=== PATIENT | female | born 1935 | race Caucasian/White ===

== ENCOUNTER 2016-09-22 13:28 | Inpatient (IN) | payer OTHER ==
[~2016-09-22] VITALS: Ht 160 cm; Wt 62.6 kg
[2016-09-22] MEDS ORDERED: SODIUM CHLORIDE 0.9% 1000ML 1,000 ML IV ONE (14:22)
[2016-09-22] MEDS ORDERED: SODIUM CHLORIDE 0.9% 1000ML 1,000 ML IV STA (14:22)
--- NOTE | 2016-09-22 14:29 | EMERGENCY ROOM VISIT NOTE ---
History Report prepared by Linnette: Digna Malloy Under the Supervision of: Dr. Teja Méndez M.D. First contact with patient: 14:12 Chief Complaint: HYPOTENSION Stated Complaint: HYPOTENSION, BRADYCARDIA, WEAKNESS, ABD. PAIN History of Present Illness The patient is a 80 year old female who presents to the Emergency Room with complaints of persistent weakness that began one week ago. The patient states that she has a history atrial fibrillation, but denies being in it chronically. She states that she is on Coumadin for her atrial fibrillation. The patient states that for the past week she has been feeling so weak that she feels that she will vomit if she stands too long. She notes nausea and lower abdominal pain today. The patient denies any recent fall or trauma or urinary symptoms. Per the patient's daughter, the patient's blood pressure was hypotensive today at a reading of 80/50 mmHg. She states that the patient has had a decrease in her appetite due to her hiatal hernia and GERD. The patient's daughter notes that the patient previously used Mylanta, but denies any relief anymore. The patient reports normal fluid intake, other than last evening and this morning. She notes chronic abdominal pain, but denies any cough, chest pain, shortness of breath, hematochezia, or melena. The patient states that she has had a low grade fever, noting a recent head cold since Friday. The patient's daughter notes that the patient recently had a change in her insulin dosage and reports a blood glucose of 102 mg/dL. She states that the patient has a history of renal disease, TIA, gastroparesis, and hypothyroidism. The patient's daughter notes that the patient recently lost her , but the patient denies any current depression. Source of History: patient, family (daughter) Onset: one week ago Position: other (global) Quality: other (weakness) Timing: other (persistent) Associated Symptoms: + abdominal pain, + nausea, No SOB, No chest pain, No cough Note: Associated Symptoms: hypotensive Review of Systems See HPI for pertinent positives & negatives. A total of 10 systems reviewed and were otherwise negative. Past Medical & Surgical Medical Problems: (1) Atrial fibrillation (2) Diabetes (3) Heart disease (4) Hypertension (5) Intractable abdominal pain (6) Orthostatic hypotension (7) TIA (transient ischemic attack) Surgical Problems: (1) H/O: hysterectomy (2) Hx of appendectomy (3) Hx of cholecystectomy (4) Status post breast reduction Old medical records were reviewed. Nurse's notes were reviewed and I agree with. Family History Diabetes mellitus FH: heart disease FHx: cancer FHx: gallbladder disease Hypertension Kidney disease Kidney stones Social History Smoking Status: Never Smoker Smokeless Tobacco Use: No Alcohol Use: none Marital Status: Housing Status: lives alone Occupation Status: retired Current/Historical Medications Scheduled Aspirin (Aspirin Ec), 81 MG PO DAILY Atorvastatin (Lipitor), 40 MG PO HS Calcium Carbonate-Vitamin D (Caltrate 600+D 600-400 mg-Unit), 1 TAB PO DAILY Cholecalciferol (Vitamin D3), 1,000 INTERUNIT PO DAILY Cyanocobalamin (Vitamin B-12), 1,000 MG SL DAILY Ferrous Sulfate (Kp Ferrous Sulfate), 325 MG PO DAILY Insulin Human NPH (Novolin N), 12 UNITS SQ QAM Insulin Human NPH (Novolin N), 4 UNITS SQ HS Isosorbide Mononitrate Ext Rel (Imdur Ext Rel), 30 MG PO QAM Levothyroxine Sodium (Synthroid), 100 MCG PO DAILY Losartan Potassium (Cozaar), 100 MG PO DAILY Magnesium Oxide (Mag-Ox), 400 MG PO QID Metoprolol Tartrate (Lopressor) (Lopressor), 50 MG PO BID Nitroglycerin (Nitrostat), 0.4 MG SL UD Pantoprazole (Protonix), 40 MG PO BID Potassium Gluconate (Potassium Gluconate), 1,785 MG PO DAILY Sucralfate (Sucralfate), 1 GM PO QID Warfarin Sod (Jantoven), 5 MG PO DAILY Scheduled PRN Hydrocodone/Acetaminophen 5MG/325MG ([place] 5MG/325MG), 1-2 TABLETS PO QID PRN for SEVERE PAIN Lorazepam (Ativan), 0.5 MG PO DAILY PRN for Anxiety Triamcinolone Acet (Triamcinolone Acetonide), 1 APPLN TOP BID PRN for AFFECTED SKIN Allergies Coded Allergies: Sulfa Antibiotics (Unverified Allergy, Unknown, UNK, 09/22/16) Physical Exam Vital Signs Date Time Temp Pulse Resp B/P Pulse Ox O2 Delivery O2 Flow Rate FiO2 09/22/16 17:30 73 18 130/88 97 Room Air 09/22/16 15:33 67 19 136/63 96 Room Air 09/22/16 14:37 59 09/22/16 13:56 77 18 120/67 09/22/16 13:37 36.4 76 20 109/65 97 Room Air Physical Exam General: Well developed well nourished, non-ill appearing older female in no acute distress, breathing comfortably on room air. Normal speech HEENT: Normal cephalic atraumatic. Pupils are equal round and reactive to light. Sclerae anicteric. Extraocular movements are intact. Oropharynx is pink with moist mucous membranes. No swelling of the mouth lips or tongue. Neck: Supple with a midline trachea. No meningeal signs or stiffness, no JVD or bruits. No Stridor. Chest: Clear to auscultation bilaterally. No wheezes or rhonchi. No increased work of breathing. Heart: Irregularly irregular and bradycardic. Abdomen: Minimally tender in the epigastric area. Soft, nondistended without rebound guarding or rigidity. Extremities: No cyanosis clubbing or edema. No calf tenderness or assymetry Spine/Back. Non tender to palpation. No CVA tenderness Skin: Good turgor without rashes. Neurologic exam: Cranial nerves two through 12 are intact. Motor and sensation are intact and symmetrical throughout. Medical Decision & Procedures ER Provider Diagnostic Interpretation: X ray results as stated below per my interpretation and radiologist interpretation. Other radiology results as stated below per my review and radiologist interpretation: CHEST ONE VIEW PORTABLE CLINICAL HISTORY: CHEST PAIN dyspnea COMPARISON STUDY: No previous studies for comparison. FINDINGS: The bones soft tissues and hemidiaphragms are normal. The cardiomediastinal silhouette is normal. The lungs are clear. The pulmonary vasculature is normal. IMPRESSION: Negative chest. Electronically signed by: Adam Srivastava M.D. 09/22/2016 2:50 PM Dictated Date/Time: 09/22/2016 2:50 PM ABDOMEN AND PELVIS CT WITHOUT CONTRAST CT DOSE: 483.16 mGy.cm HISTORY: Pain eval for renal obit, AAA TECHNIQUE: Multiaxial CT images of the abdomen and pelvis were performed without the use of intravenous and oral contrast according to the standard department stone protocol. COMPARISON STUDY: None. FINDINGS: Lung bases are clear. Possible early cirrhotic change of the liver. Prior cholecystectomy. Mild prominence of the biliary ductal system most likely a postoperative basis. Several renal vascular calcifications. No evidence for an obstructing urinary tract calculus. Several small exophytic renal cyst. 2.3 cm peripheral calcification a perisplenic location. This may be secondary to old trauma. Is considered a nonacute finding. Bowel pattern overall is considered nonobstructive. The appendix is not well seen although there is no pericecal inflammatory process. Considerable atherosclerotic change of the abdominal aorta as well as iliac vasculature. No evidence for aneurysm. Bladder is midline. IMPRESSION: 1. No evidence for an obstructing urinary tract calculus. 2. Nonobstructive bowel pattern. 3. No evidence for aneurysm of the abdominal aorta or iliac vasculature. 4. Prior cholecystectomy. Mild prominence of the biliary ductal system most likely a postoperative basis. 5. Possible early hepatic cirrhotic change Electronically signed by: Adam Srivastava M.D. 09/22/2016 5:10 PM Dictated Date/Time: 09/22/2016 5:03 PM Laboratory Results Test 09/22/16 14:05 09/22/16 14:32 09/22/16 16:20 Thyroid Stimulating Hormone (TSH) 3.660 uIu/ml (0.300-4.500) Bedside Troponin I ng/ml (0-0.045) HD-Raf-X-Type Natriuretic Peptide 2822 pg/ml (0-1800) Urine Color YELLOW Urine Appearance CLEAR (CLEAR) Urine pH 6.5 (4.5-7.5) Urine Specific [place] 1.006 (1.000-1.030) Urine Protein NEG (NEG) Urine Glucose (UA) NEG (NEG) Urine Ketones NEG (NEG) Urine Occult Blood NEG (NEG) Urine Nitrite NEG (NEG) Urine Bilirubin NEG (NEG) Urine Urobilinogen NEG (NEG) Urine Leukocyte Esterase NEG (NEG) Date/Time Source Procedure Growth Status 09/22/16 16:20 Urine , Clean Catch Urine Culture - Final THREE TYPES OF ORGANISMS PRESENT, ALL... Complete Laboratory studies as stated above per my review. Medications Administered Medications (Trade) Dose Ordered Sig/Jay Route Start Time Stop Time Status Last Admin Dose Admin Sodium Chloride 1,000 ml @ 999 mls/hr Q1H1M STAT IV 09/22/16 14:22 09/22/16 15:22 DC 09/22/16 14:36 999 MLS/HR Sodium Chloride (Nss 1000ml) 1,000 ml @ 150 mls/hr Q6H40M ONCE IV 09/22/16 14:22 09/23/16 11:20 DC 09/22/16 14:36 150 MLS/HR ECG Indication: weakness Rate (beats per minute): 61 Rhythm: atrial fibrillation Findings: T-wave inversion (Lateral), other (no acute ST segment abnormalities) ED Course 1413: Past medical records reviewed. The patient was evaluated in room B4A, and a complete history and physical examination were performed. 1422: Ordered Sodium Chloride 1000 ml @ 150 mls/hr IV, Sodium Chloride 1000 ml @ 999 mls/hr IV. 1524: I reevaluated the patient and she is doing okay. She agrees to have a CT scan. 1629: I reevaluated the patient and she is doing well and prepping for her CT scan. I discussed the exam findings with the patient and her family and I discussed the treatment plan. She verbalized complete understanding and agreement. The patient will be evaluated for further treatment. 1633: I discussed the patients case [place] [facility] [place] He is going to evaluate the patient for further treatment. Medical Decision Differentials include, but are not limited to; acute coronary syndrome, arrhythmia, dehydration, infection, sepsis, electrolyte or metabolic abnormality , anemia, GI bleed This patient comes in as described above. She was placed in room b4. She comes in after being noted to be hypotensive and having some epigastric abdominal pain. She was noted to be in A. fib apparently this is chronic. She has had some decreased by mouth intake. She looks well on exam. She has some mild tenderness epigastric area but no peritonitis. IV access established and she gently hydrated. She's had nothing suggest congestive heart failure. Her EKG shows no definite ischemic changes. She does have some mild anemia 11.3. Her BUN and creatinine were elevated at 21 and 2.1 with the potassium 5.6. She' s no EKG changes of hyperkalemia she was hydrated with IV NS. CAT scan of her abdomen was unremarkable. I do think she is dehydrated and needs further inpatient treatment and evaluation. I have consulted the [facility] hospitalist team. They saw her in the ER and will admit her for these measures. Consults Time Called: 1632 Consulting Physician: JOANNA Valdes Returned Call: [phone] I discussed the patients case with JOANNA Valdes. He is going to evaluate the patient for further treatment. Impression Primary Impression: Hypotension Additional Impressions: Dehydration Atrial fibrillation Weakness Scribe Attestation The scribe's documentation has been prepared under my direction and personally reviewed by me in its entirety. I confirm that the note above accurately reflects all work, treatment, procedures, and medical decision making performed by me. Departure Information Dispostion Being Evaluated By Hospitalist Prescriptions Sucralfate (SUCRALFATE) 1 Gm Tab 1 GM PO QID, #20 TAB Prov: Durga Burgos M.D. 09/25/16 Pantoprazole (Protonix) 40 Mg Tab 40 MG PO BID, #60 TAB Prov: Durga Burgos M.D. 09/25/16 Referrals Himanshu Zambrano M.D. (PCP) Problem Qualifiers
[2016-09-22 14:38] LABS: HEMATOCRIT 33.7 % (37-47); MEAN CELL VOLUME 84.5 fL (80-100); MEAN CORPUSCULAR HEMOGLOBIN 28.3 pg (25-34); MEAN CORPUSCULAR HGB CONC 33.5 g/dl (32-36); MEAN PLATELET VOLUME 9.9 fL (7.4-10.4); PLATELET COUNT 300 K/uL (130-400); RED BLOOD COUNT 3.99 M/uL (4.2-5.4)
--- NOTE | 2016-09-22 14:51 | DIAGNOSTIC IMAGING REPORT ---
CHEST ONE VIEW PORTABLE CLINICAL HISTORY: CHEST PAIN dyspnea COMPARISON STUDY: No previous studies for comparison. FINDINGS: The bones soft tissues and hemidiaphragms are normal. The cardiomediastinal silhouette is normal. The lungs are clear. The pulmonary vasculature is normal. IMPRESSION: Negative chest. Electronically signed by: Adam Srivastava M.D. 09/22/2016 2:50 PM Dictated Date/Time: 09/22/2016 2:50 PM
[2016-09-22 15:00] LABS: BASO % 0.4 %; BASO ABS # 0.02 K/uL (0-0.2); COMPLETE YES; EOS % 1.1 %; IG% 0.4 %; LYMPH % 13.3 %; LYMPH ABS # 0.61 K/uL (1.2-3.4); NEUT % 71.8 %
[2016-09-22 15:01] LABS: BUN/CREATININE RATIO 9.8 (10-20); CREATININE 2.1 mg/dl (0.60-1.20); POTASSIUM 5.6 mmol/L (3.5-5.1)
[2016-09-22] MEDS ORDERED: MECL1TAB40 PO (15:11)
[2016-09-22] MEDS ORDERED: NVLNI SQ ×2 (15:11)
[2016-09-22] MEDS ORDERED: NTRGSL.4 SL (15:11)
[2016-09-22] MEDS ORDERED: CALC1CHW2 PO (15:11)
[2016-09-22] MEDS ORDERED: HYDR-5688 PO (15:11)
[2016-09-22] MEDS ORDERED: POTA1TAB PO (15:11)
[2016-09-22] MEDS ORDERED: FRS/40 PO (15:11)
[2016-09-22] MEDS ORDERED: ASPI81TA28 PO (15:11)
[2016-09-22] MEDS ORDERED: FLX10 PO (15:11)
[2016-09-22] MEDS ORDERED: LOSA1TAB38 PO (15:11)
[2016-09-22] MEDS ORDERED: ISOS30TA35 PO (15:11)
[2016-09-22] MEDS ORDERED: AMLO-114 PO (15:11)
[2016-09-22] MEDS ORDERED: PANT40TA PO (15:11)
[2016-09-22] MEDS ORDERED: LORA-741 PO (15:11)
[2016-09-22] MEDS ORDERED: FERR1TAB13 PO (15:11)
[2016-09-22] MEDS ORDERED: CYAN100048 SL (15:11)
[2016-09-22] MEDS ORDERED: WARF5TAB7 PO (15:11)
[2016-09-22] MEDS ORDERED: TRMCR115 TOP (15:11)
[2016-09-22] MEDS ORDERED: LEVO100T PO (15:11)
[2016-09-22] MEDS ORDERED: MAGN400T6 PO (15:11)
[2016-09-22] MEDS ORDERED: VTMD1000 PO (15:11)
[2016-09-22] MEDS ORDERED: SPIR25TA PO (15:11)
[2016-09-22] MEDS ORDERED: TRAZ50TA35 PO (15:11)
[2016-09-22] MEDS ORDERED: ATOR-24 PO (15:11)
[2016-09-22 15:13] LABS: CKMB/CK RATIO 1.5 (0-3.0); THYROID STIMULATING HORMONE 3.66 uIu/ml (0.300-4.500)
[2016-09-22 15:54] LABS: INR 2.7 (0.9-1.1); PARTIAL THROMBOPLASTIN RATIO 1.7; PROTHROMBIN TIME (PATIENT) 30.3 SECONDS (9.0-12.0)
[2016-09-22 16:49] LABS: URINE APPEARANCE CLEAR (CLEAR); URINE BILIRUBIN NEG (NEG); URINE COLOR YELLOW; URINE NITRITE NEG (NEG); URINE PH 6.5 (4.5-7.5); URINE SPECIFIC GRAVITY 1.006 (1.000-1.030); UROBILINOGEN NEG (NEG)
[2016-09-22 16:55] LABS: MANUAL MICROSCOPIC REQUIRED? NO; REVIEW REQ? NO
--- NOTE | 2016-09-22 17:11 | DIAGNOSTIC IMAGING REPORT ---
ABDOMEN AND PELVIS CT WITHOUT CONTRAST CT DOSE: 483.16 mGy.cm HISTORY: Pain eval for renal obit, AAA TECHNIQUE: Multiaxial CT images of the abdomen and pelvis were performed without the use of intravenous and oral contrast according to the standard department stone protocol. COMPARISON STUDY: None. FINDINGS: Lung bases are clear. Possible early cirrhotic change of the liver. Prior cholecystectomy. Mild prominence of the biliary ductal system most likely a postoperative basis. Several renal vascular calcifications. No evidence for an obstructing urinary tract calculus. Several small exophytic renal cyst. 2.3 cm peripheral calcification a perisplenic location. This may be secondary to old trauma. Is considered a nonacute finding. Bowel pattern overall is considered nonobstructive. The appendix is not well seen although there is no pericecal inflammatory process. Considerable atherosclerotic change of the abdominal aorta as well as iliac vasculature. No evidence for aneurysm. Bladder is midline. IMPRESSION: 1. No evidence for an obstructing urinary tract calculus. 2. Nonobstructive bowel pattern. 3. No evidence for aneurysm of the abdominal aorta or iliac vasculature. 4. Prior cholecystectomy. Mild prominence of the biliary ductal system most likely a postoperative basis. 5. Possible early hepatic cirrhotic change Electronically signed by: Adam Srivastava M.D. 09/22/2016 5:10 PM Dictated Date/Time: 09/22/2016 5:03 PM
[2016-09-22] MEDS ORDERED: ONDANSETRON INJ 2 MG/ML 2 ML VIAL IV PRN (18:00)
[2016-09-22] MEDS ORDERED: TRIAMCINOLONE ACET 0.1% CR 15 GM TUBE EXT PRN (18:00)
[2016-09-22] MEDS ORDERED: CYCLOBENZAPRINE HCL 5 MG TAB PO PRN (18:00)
[2016-09-22] MEDS ORDERED: ACETAMINOPHEN 325 MG TAB PO PRN (18:00)
[2016-09-22] MEDS ORDERED: ZOLPIDEM TARTRATE 5 MG TAB PO PRN (18:00)
[2016-09-22] MEDS ORDERED: NITROGLYCERIN 0.4 MG SL PER TAB CHARGE SL PRN (18:00)
[2016-09-22] MEDS ORDERED: NITROGLYCERIN 0.4 MG SL PER TAB CHARGE SL SCH (18:00)
[2016-09-22] MEDS ORDERED: SUCRALFATE 1 GM/10 ML UDC PO ONE (18:10)
[2016-09-22] MEDS ORDERED: DEXTROSE 50% 50 ML SYR IV PRN (18:15)
[2016-09-22] MEDS ORDERED: GLUCOSE 40% GEL 15 GM TUBE PO PRN (18:15)
[2016-09-22] MEDS ORDERED: GLUCAGON FOR INJ 1 MG VIAL SQ PRN (18:15)
[2016-09-22] MEDS ORDERED: GLUCOSE 10 TABS/TUBE PO PRN (18:15)
[2016-09-22 19:12] LABS: CKMB/CK RATIO 1.3 (0-3.0)
[2016-09-22 19:40] VITALS: BP 151/75; PULSE 77; TEMP 36.4; O2SAT 98
[2016-09-22] MEDS: HYDROCODONE/ACETAMOPHEN 5/325MG TAB PO PRN (20:01)
--- NOTE | 2016-09-22 20:09 | History and Physical ---
History & Physical Date & Time of Service: Sep 22, 2016 at 19:54 Chief Complaint: Intractable Abdominal Pain,Orthostatic Hypotension Primary Care Physician: Himanshu Zambrano M.D. History of Present Illness Source: patient The patient is a 80-year-old female who presents to the emergency department with generalized weakness, epigastric abdominal pain, and blood pressure recorded at home of 80/50. Her 3 weeks ago in this hospital, and she has not been eating as well during that time. She did have an EGD done by Dr. Dailey last year which was negative. She did get some relief with Mylanta. She has been on omeprazole and more recently Protonix without significant improvement in symptoms after one month of age. Abdominal pain has been ongoing for several months. She did have an interval of low blood sugars, but since her insulin levels were decreased, her blood sugars have been a better averaging in the low 100s. She also has a known history of gastroparesis. Past Medical/Surgical History Medical Problems: (1) Atrial fibrillation Status: Chronic (2) Diabetes Status: Chronic (3) Heart disease Status: Chronic (4) Hypertension Status: Chronic (5) TIA (transient ischemic attack) Status: Resolved Surgical Problems: (1) H/O: hysterectomy Status: Resolved (2) Hx of appendectomy Status: Resolved (3) Hx of cholecystectomy Status: Resolved (4) Status post breast reduction Status: Resolved Family History Diabetes mellitus FH: heart disease FHx: cancer FHx: gallbladder disease Hypertension Kidney disease Kidney stones Social History Smoking Status: Never Smoker Smokeless Tobacco Use: No Drug Use: none Marital Status: Housing status: lives with family Occupational Status: retired Multi-Drug Resistant Organisms History of MDRO: No Allergies Coded Allergies: Sulfa Antibiotics (Unverified Allergy, Unknown, UNK, 09/22/16) Home Medications Scheduled Amlodipine (Norvasc), 10 MG PO DAILY Aspirin (Aspirin Ec), 81 MG PO DAILY Atorvastatin (Lipitor), 40 MG PO HS Calcium Carbonate-Vitamin D (Caltrate 600+D 600-400 mg-Unit), 1 TAB PO DAILY Cholecalciferol (Vitamin D3), 1,000 INTERUNIT PO DAILY Cyanocobalamin (Vitamin B-12), 1,000 MG SL DAILY Ferrous Sulfate (Kp Ferrous Sulfate), 325 MG PO DAILY Furosemide (Lasix), 40 MG PO QAM Insulin Human NPH (Novolin N), 12 UNITS SQ QAM Insulin Human NPH (Novolin N), 4 UNITS SQ HS Isosorbide Mononitrate Ext Rel (Imdur Ext Rel), 30 TAB PO QAM Levothyroxine Sodium (Synthroid), 100 MCG PO DAILY Losartan Potassium (Cozaar), 100 MG PO DAILY Magnesium Oxide (Mag-Ox), 400 MG PO QID Meclizine HCl (Meclizine HCl), 12.5 MG PO TID Nitroglycerin (Nitrostat), 0.4 MG SL UD Pantoprazole (Protonix), 40 MG PO BID Potassium Gluconate (Potassium Gluconate), 1,785 MG PO DAILY Spironolactone (Aldactone), 25 MG PO DAILY Trazodone Hcl (Trazodone), 50 MG PO HS Warfarin Sod (Jantoven), 5 MG PO UD Scheduled PRN Cyclobenzaprine HCl (Cyclobenzaprine HCl), 5 MG PO HS PRN for PRN Hydrocodone/Acetaminophen 5MG/325MG ([place] 5MG/325MG), 1-2 TABLETS PO QID PRN for SEVERE PAIN Lorazepam (Ativan), 0.5 MG PO DAILY PRN for Anxiety Triamcinolone Acet (Triamcinolone Acetonide), 1 APPLN TOP BID PRN for AFFECTED SKIN Review of Systems The patient denies chest pain, palpitations, shortness of breath, cough, lower extremity swelling, vision change, hearing change, sore throat, fevers, chills, sweats, weight change, blood in urine or stool, dysuria, urinary frequency or urgency, lightheadedness, dizziness, headache, memory loss, rash, abnormal bruising or bleeding, imbalance, focal weakness, numbness or tingling in arms or legs, arthralgias or myalgias, back or neck pain, night sweats, or allergy symptoms. The review of systems is otherwise negative other than for that already noted above, and at least 10 systems have been reviewed. Physical Exam Vital Signs Date Time Temp Pulse Resp B/P Pulse Ox O2 Delivery O2 Flow Rate FiO2 09/22/16 19:16 70 19 132/71 98 Room Air 09/22/16 17:30 73 18 130/88 97 Room Air 09/22/16 15:33 67 19 136/63 96 Room Air 09/22/16 14:37 59 09/22/16 13:56 77 18 120/67 09/22/16 13:37 36.4 76 20 109/65 97 Room Air The patient is awake, well-developed and adequately nourished, alert and oriented 3, normocephalic and atraumatic, lying in bed and in no acute distress. HEENT--PERRL, EOMI, mucous membranes and oropharynx dry. Neck--supple, no JVD or bruits, thyroid normal, trachea midline, no adenopathy. Heart--normal S1 and S2, no extra beats, no murmurs, rubs or gallops. Lungs--clear bilaterally with good air movement, no respiratory distress, no accessory muscle use. Abdomen--normal bowel sounds and soft, nontender and nondistended, no hernias or masses, no organomegaly. Extremities--no cyanosis, clubbing or edema. There are good distal pulses b/l. Dermatologic--normal skin turgor, normal color, warm and dry, no abnormal lymph nodes, no rash. Neurologic--cranial nerves II through XII grossly intact, motor and sensory examination normal. Rheumatologic--normal range of motion, nontender, muscles and joints. Psychiatric--normal affect. Diagnostics Laboratory Results Results Past 24 Hours Test 09/22/16 14:05 09/22/16 14:22 09/22/16 15:32 09/22/16 16:20 Range/Units White Blood Count 4.60 4.8-10.8 K/uL Red Blood Count 3.99 4.2-5.4 M/uL Hemoglobin 11.3 12.0-16.0 g/dL Hematocrit 33.7 37-47 % Mean Corpuscular Volume 84.5 80-100 fL Mean Corpuscular Hemoglobin 28.3 25-34 pg Mean Corpuscular Hemoglobin Concent 33.5 32-36 g/dl Platelet Count 300 130-400 K/uL Mean Platelet Volume 9.9 7.4-10.4 fL Neutrophils (%) (Auto) 71.8 % Lymphocytes (%) (Auto) 13.3 % Monocytes (%) (Auto) 13.0 % Eosinophils (%) (Auto) 1.1 % Basophils (%) (Auto) 0.4 % Neutrophils # (Auto) 3.30 1.4-6.5 K/uL Lymphocytes # (Auto) 0.61 1.2-3.4 K/uL Monocytes # (Auto) 0.60 0.11-0.59 K/uL Eosinophils # (Auto) 0.05 0-0.5 K/uL Basophils # (Auto) 0.02 0-0.2 K/uL RDW Standard Deviation 49.0 36.4-46.3 fL RDW Coefficient of Variation 15.9 11.5-14.5 % Immature Granulocyte % (Auto) 0.4 % Immature Granulocyte # (Auto) 0.02 0.00-0.02 K/uL Sodium Level 134 136-145 mmol/L Potassium Level 5.6 3.5-5.1 mmol/L Chloride Level 99 98-107 mmol/L Carbon Dioxide Level 22 21-32 mmol/L Anion Gap 13.0 3-11 mmol/L Blood Urea Nitrogen 21 7-18 mg/dl Creatinine 2.10 0.60-1.20 mg/dl Est Creatinine Clear Calc Drug Dose 18.0 ml/min Estimated GFR () 25.3 Estimated GFR (Non- 21.8 BUN/Creatinine Ratio 9.8 10-20 Random Glucose 142 70-99 mg/dl Calcium Level 9.0 8.5-10.1 mg/dl Total Bilirubin 0.6 0.2-1 mg/dl Direct Bilirubin 0.3 0-0.2 mg/dl Aspartate Amino Transf (AST/SGOT) 66 15-37 U/L Alanine Aminotransferase (ALT/SGPT) 40 12-78 U/L Alkaline Phosphatase 500 45-117 U/L Total Creatine Kinase 40 26-192 U/L Creatine Kinase MB 0.6 0.5-3.6 ng/ml Creatine Kinase MB Ratio 1.5 0-3.0 Troponin I < 0.015 0-0.045 ng/ml Total Protein 8.9 6.4-8.2 gm/dl Albumin 3.3 3.4-5.0 gm/dl Lipase 130 73-393 U/L Thyroid Stimulating Hormone (TSH) 3.660 0.300-4.500 uIu/ml Prothrombin Time 30.3 9.0-12.0 SECONDS Prothromb Time International Ratio 2.7 0.9-1.1 Activated Partial Thromboplast Time 44.3 21.0-31.0 SECONDS Partial Thromboplastin Ratio 1.7 Urine Color YELLOW Urine Appearance CLEAR CLEAR Urine pH 6.5 4.5-7.5 Urine Specific Colbert 1.006 1.000-1.030 Urine Protein NEG NEG Urine Glucose (UA) NEG NEG Urine Ketones NEG NEG Urine Occult Blood NEG NEG Urine Nitrite NEG NEG Urine Bilirubin NEG NEG Urine Urobilinogen NEG NEG Urine Leukocyte Esterase NEG NEG Test 09/22/16 18:30 Range/Units Total Creatine Kinase 38 26-192 U/L Creatine Kinase MB 0.5 0.5-3.6 ng/ml Creatine Kinase MB Ratio 1.3 0-3.0 Troponin I < 0.015 0-0.045 ng/ml Microbiology Results 09/22/16 Blood Culture, Received Pending 09/22/16 Blood Culture, Received Pending 09/22/16 Urine Culture, Received Pending Diagnostic Radiology Patient Name: FLOWER BLANCO Unit Number: [id number] Dictated: 09/22/161449 Transcribed: 09/22/16 1450 MS Printed Date/Time: [~ rep prt dt]/[~ rep prt tm] [~ rep ct labl] - [~ rep ct ivnm] [facility] [place] [address] Dictated: 09/22/16 1450 Transcribed: 09/22/16 1450 MS Printed Date/Time: [~ rep prt dt]/[~ rep prt tm] [~ rep ct labl] - [~ rep ct ivnm] DIAGNOSTIC IMAGING [~ rep ct add3]] CHEST ONE VIEW PORTABLE CLINICAL HISTORY: CHEST PAIN dyspnea COMPARISON STUDY: No previous studies for comparison. FINDINGS: The bones soft tissues and hemidiaphragms are normal. The cardiomediastinal silhouette is normal. The lungs are clear. The pulmonary vasculature is normal. IMPRESSION: Negative chest. Electronically signed by: Adam Srivastava M.D. 09/22/2016 2:50 PM Dictated Date/Time: 09/22/2016 2:50 PM The status of this report is Signed. Draft = Not yet reviewed or approved by Radiologist. Signed = Reviewed and approved by Radiologist. <AttendingPhy></AttendingPhy> <FamilyPhy>Himanshu Zambrano M.D.</FamilyPhy> < PrimaryPhy>Himanshu Zambrano M.D.</PrimaryPhy> <UnitNumber>[id number]</UnitNumber> < VisitNumber>[id number]</VisitNumber> <PatientName>FLOWER BLANCO</ PatientName> <DateOfBirth>1935</DateOfBirth> <Location>[facility]</Location> < ServiceDate>09/22/16</ServiceDate> <MNE>ESINDI</MNE> <OrderingPhy>Teja Méndez M.D.</OrderingPhy> <OrderingPhyMNE>f rep ord dr houston</OrderingPhyMNE> < DictatingPhyMNE>f rep dict dr houston</DictatingPhyMNE> <CCListMNE>f rep ct mne</ CCListMNE> <AdmittingPhyMNE>f pt admit dr houston</AdmittingPhyMNE> <AttendingPhyMNE >f pt attend dr houston</AttendingPhyMNE> <ConsultingPhyMNE>f pt consult dr houston</ConsultingPhyMNE> <FamilyPhyMNE>f pt fam dr houston</FamilyPhyMNE> <OtherPhyMNE>f pt other dr houston</OtherPhyMNE> < PrimaryPhyMNE>f pt prim care dr houston</PrimaryPhyMNE> <ReferringPhyMNE>f pt referring dr houston</ReferringPhyMNE> Patient Name: FLOWER BLANCO Unit Number: [id number] Dictated: 09/22/161702 Transcribed: 09/22/161702 MS Printed Date/Time: [~ rep prt dt]/[~ rep prt tm] [~ rep ct labl] - [~ rep ct ivnm] [facility] [place] [address] Dictated: 09/22/161702 Transcribed: 09/22/161702 MS Printed Date/Time: [~ rep prt dt]/[~ rep prt tm] [~ rep ct labl] - [~ rep ct ivnm] [~ rep ct add3]] ABDOMEN AND PELVIS CT WITHOUT CONTRAST CT DOSE: 483.16 mGy.cm HISTORY: Pain eval for renal obit, AAA TECHNIQUE: Multiaxial CT images of the abdomen and pelvis were performed without the use of intravenous and oral contrast according to the standard department stone protocol. COMPARISON STUDY: None. FINDINGS: Lung bases are clear. Possible early cirrhotic change of the liver. Prior cholecystectomy. Mild prominence of the biliary ductal system most likely a postoperative basis. Several renal vascular calcifications. No evidence for an obstructing urinary tract calculus. Several small exophytic renal cyst. 2.3 cm peripheral calcification a perisplenic location. This may be secondary to old trauma. Is considered a nonacute finding. Bowel pattern overall is considered nonobstructive. The appendix is not well seen although there is no pericecal inflammatory process. Considerable atherosclerotic change of the abdominal aorta as well as iliac vasculature. No evidence for aneurysm. Bladder is midline. IMPRESSION: 1. No evidence for an obstructing urinary tract calculus. 2. Nonobstructive bowel pattern. 3. No evidence for aneurysm of the abdominal aorta or iliac vasculature. 4. Prior cholecystectomy. Mild prominence of the biliary ductal system most likely a postoperative basis. 5. Possible early hepatic cirrhotic change Electronically signed by: Adam Srivastava M.D. 09/22/2016 5:10 PM Dictated Date/Time: 09/22/2016 5:03 PM The status of this report is Signed. Draft = Not yet reviewed or approved by Radiologist. Signed = Reviewed and approved by Radiologist. <AttendingPhy></AttendingPhy> <FamilyPhy>Himanshu Zambrano M.D.</FamilyPhy> < PrimaryPhy>Himanshu Zambrano M.D.</PrimaryPhy> <UnitNumber>[id number]</UnitNumber> < VisitNumber>[id number]</VisitNumber> <PatientName>BLANCOFLOWER</ PatientName> <DateOfBirth>1935</DateOfBirth> <Location>[facility]</Location> < ServiceDate>09/22/16</ServiceDate> <MNE>ESINDI</MNE> <OrderingPhy>Teja Méndez M.D.</OrderingPhy> <OrderingPhyMNE>f rep ord dr houston</OrderingPhyMNE> < DictatingPhyMNE>f rep dict dr houston</DictatingPhyMNE> <CCListMNE>f rep sidra houston</ CCListMNE> <AdmittingPhyMNE>f pt admit dr houston</AdmittingPhyMNE> <AttendingPhyMNE >f pt attend dr houston</AttendingPhyMNE> <ConsultingPhyMNE>f pt consult dr houston</ConsultingPhyMNE> <FamilyPhyMNE>f pt fam dr houston</FamilyPhyMNE> <OtherPhyMNE>f pt other dr houston</OtherPhyMNE> < PrimaryPhyMNE>f pt prim care dr houston</PrimaryPhyMNE> <ReferringPhyMNE>f pt referring dr houston</ReferringPhyMNE> EKG EKG shows atrial fibrillation 61 bpm, with T-wave inversions leads V4 through V6. Impression Assessment and Plan Atrial fibrillation with lateral EKG changes/orthostatic hypotension--patient admitted to the telemetry unit, for serial cardiac enzymes, cardiac rhythm monitoring and a 2-D echocardiogram with Dopplers. We'll consult her search manager Dr. Wiley. Continue warfarin at present dosing, INR therapeutic at 2.7. Hold amlodipine 10 mg by mouth daily, furosemide 40 mg by mouth every morning, and spironolactone 25 mg by mouth daily. Continue IMDUR extended release 30 mg by mouth every morning, losartan 100 mg by mouth daily, mag oxide 40 mg by mouth 4 times a day, aspirin 81 mg by mouth daily and nitroglycerin lingual's when necessary. Will also hold trazodone 50 mg by mouth at bedtime. Hypercholesterolemia--continue atorvastatin 40 mg by mouth at bedtime. Diabetes Mellitus--continue Humulin N 12 units subcutaneous every morning and 4 units subcutaneous at bedtime. Place on Accu-Cheks before meals and at bedtime with NovoLog coverage. GERD/gastroparesis--continue pantoprazole 40 mg by mouth twice a day. We'll add Carafate 1 g by mouth 4 times a day. Consult her magician helper Dr. Dailey. There is a potential that her abdominal pain may be an anginal equivalent. Hypothyroidism--continue levothyroxine sodium 100 g by mouth daily. Level of Care Telemetry Advanced Directives Existing Advance Directive: No Existing Living Will: No Existing Power of Brand Attendant: No Resuscitation Status FULL RESUSCITATION VTE Prophylaxis VTE Risk Assessment Done? Y/N: Yes Risk Level: Moderate Given or contraindicated: Warfarin (Coumadin) Social Service Consult None Apply
[2016-09-22] MEDS ORDERED: METO50TA16 PO (20:17)
[2016-09-22] MEDS ORDERED: LEVALBUTEROL/IPRATROPIUM NEB INH SCH (21:00)
[2016-09-22 21:04] VITALS: BP 151/75; PULSE 77; TEMP 36.4; O2SAT 98; Ht 160 cm; Wt 62.6 kg
[2016-09-22] MEDS ORDERED: NSS + 20MEQ KCL 1000ML 1,000 ML IV SCH (21:30)
[2016-09-22] MEDS: INSULIN ASPART 100 UNITS/ML 3 ML PEN SC SCH (22:00)
[2016-09-22] MEDS ORDERED: IPRATROPIUM BROMIDE NEB SOLN 0.02% 2.5 ML VIAL INH PRN (22:30)
[2016-09-22] MEDS ORDERED: LEVALBUTEROL 1.25MG/0.5ML NEB INH PRN (22:30)
[2016-09-22] MEDS: CEFTRIAXONE SOD INJ 1 GM in DEXTROSE 5% ADD-VANTAGE 50ML 50 ML IV SCH (22:32)
[2016-09-22] MEDS: SUCRALFATE 1 GM/10 ML UDC PO SCH (22:33)
[2016-09-22] MEDS: ATORVASTATIN 40 MG TAB PO SCH (22:34)
[2016-09-22] MEDS: WARFARIN SOD 5 MG TAB PO SCH (22:34)
[2016-09-22] MEDS: MAGNESIUM OXIDE 400 MG TAB PO SCH (22:35)
[2016-09-22] MEDS: PANTOprazole SOD 40 MG TAB PO SCH (22:36)
[2016-09-22] MEDS: INSULIN HUMAN NPH SQ SCH (22:43)
[2016-09-22 23:30] VITALS: BP 120/66; PULSE 61; TEMP 36.5; O2SAT 97
[2016-09-22] MEDS ORDERED: CALCIUM GLUCONATE 10% 500 MG in SODIUM CHLORIDE 0.9% 50ML 50 ML IV STA (23:53)
[2016-09-23] VITALS (13 sets, daily range): BP systolic 105–150; BP diastolic 67–70; PULSE 69–97; TEMP 36.5–36.9; O2SAT 96–100
[2016-09-23] MEDS: SODIUM CHLORIDE 0.9% 1000ML 1,000 ML IV SCH ×3 (00:24→21:28)
[2016-09-23 02:36] LABS: CKMB/CK RATIO 2.1 (0-3.0)
[2016-09-23] MEDS: LEVALBUTEROL 1.25MG/0.5ML NEB INH SCH ×4 (02:52→22:00)
[2016-09-23] MEDS: IPRATROPIUM BROMIDE NEB SOLN 0.02% 2.5 ML VIAL INH SCH ×4 (02:52→22:00)
[2016-09-23] MEDS: LEVOTHYROXINE 100 MCG TAB PO SCH (06:26)
[2016-09-23 07:48] LABS: HEMATOCRIT 31.4 % (37-47); MEAN CELL VOLUME 81.8 fL (80-100); MEAN CORPUSCULAR HEMOGLOBIN 27.1 pg (25-34); MEAN CORPUSCULAR HGB CONC 33.1 g/dl (32-36); MEAN PLATELET VOLUME 9.3 fL (7.4-10.4); PLATELET COUNT 260 K/uL (130-400); RED BLOOD COUNT 3.84 M/uL (4.2-5.4); WHITE BLOOD COUNT 4.93 K/uL (4.8-10.8)
[2016-09-23] MEDS: HYDROCODONE/ACETAMOPHEN 5/325MG TAB PO PRN ×3 (07:52→21:36)
[2016-09-23 07:53] LABS: INR 2.7 (0.9-1.1); PARTIAL THROMBOPLASTIN RATIO 1.7; PROTHROMBIN TIME (PATIENT) 30.4 SECONDS (9.0-12.0)
[2016-09-23] MEDS: SUCRALFATE 1 GM/10 ML UDC PO SCH ×4 (07:53→21:28)
[2016-09-23] MEDS: LOSARTAN POTASSIUM 50 MG TAB PO SCH (07:54)
[2016-09-23] MEDS: CHOLECALCIFEROL 1000 INTER.UNIT TAB PO SCH (07:54)
[2016-09-23] MEDS: ASPIRIN 81 MG ECTAB PO SCH (07:55)
[2016-09-23] MEDS: MAGNESIUM OXIDE 400 MG TAB PO SCH ×4 (07:55→21:30)
[2016-09-23] MEDS: ISOSORBIDE MONONITRATE 30 MG TABCR PO SCH (07:55)
[2016-09-23] MEDS: PANTOprazole SOD 40 MG TAB PO SCH ×2 (07:55→21:29)
[2016-09-23] MEDS: INSULIN ASPART 100 UNITS/ML 3 ML PEN SC SCH ×4 (07:56→21:40)
[2016-09-23] MEDS: INSULIN HUMAN NPH SQ SCH ×2 (08:01→21:41)
[2016-09-23 08:19] LABS: BASO % 0.2 %; BASO ABS # 0.01 K/uL (0-0.2); COMPLETE YES; IG% 0.4 %; LYMPH % 8.1 %; MONO % 14.4 %; NEUT % 75.9 %; OVALOCYTES 1+
[2016-09-23 08:57] LABS: BUN/CREATININE RATIO 11.4 (10-20); CALCIUM 9.3 mg/dl (8.5-10.1); CREATININE 1.4 mg/dl (0.60-1.20); MAGNESIUM 2.3 mg/dl (1.8-2.4); POTASSIUM 4.4 mmol/L (3.5-5.1)
[2016-09-23] MEDS ORDERED: AMLODIPINE BESYLATE 5 MG TAB PO SCH (09:00)
[2016-09-23 10:40] LABS: CKMB/CK RATIO 2.2 (0-3.0)
--- NOTE | 2016-09-23 12:02 | Gastrointestinal Consultation ---
Gastrointestinal Consultation Date of Consultation: Sep 23, 2016 Reason for Consultation: epigastric abdominal pain, weight loss History of Present Illness Ms. Esteban is a 80 year old female with past medical history of HTN, gastroparesis, GERD, diabetes, AFIB presented for evaluation of abdominal pain and weakness. GI is consulted for abdominal pain and unintentional weight loss. She reports long standing issues with loose, frequent urgent stools. She reports every time after eating anything, within 30 minutes she experiences abdominal cramping with the urge to have a BM. The stools are always loose. No BRBPR. Black stools since starting iron. Abdominal cramping is immediately resolved after the BM. No symptoms until next meal. She has been reporting upper GI symptoms for about the last 6/7 years. She has had three EGDs for this. She reports bloating, epigastric pain, dull & constant. This becomes sharp and more severe with any food or water. She reports that she is also experiencing a decrease in her appetite and an unintentional weight loss of about 20 lbs over the past few months. She is taking aspirin and Coumadin. No NSAIDs or skilled nursing steroid use. Infrequent ETOH. Has began drinking decaffeinated coffee. She is taking omeprazole 40 mg BID EGD 2016: unremarkable (was done for repeat study as previous there was food in her stomach, diagnosis of gastroparesis) Colonoscopy 2013: unremarkable, 1 polyp removed at hepatic flexure Past Medical/Surgical History Medical Problems: (1) Atrial fibrillation Status: Chronic (2) Dehydration Status: Acute (3) Hypotension Status: Acute (4) Weakness Status: Acute Family History Diabetes mellitus FH: heart disease FHx: cancer FHx: gallbladder disease Hypertension Kidney disease Kidney stones Social History Smoking Status: Never Smoker Alcohol Use: none Drug Use: none Marital Status: Housing Status: lives alone Occupation Status: retired Allergies Coded Allergies: Sulfa Antibiotics (Unverified Allergy, Unknown, UNK, 09/22/16) Current Medications Home Meds and Scripts Medications Dose Route/Sig Max Daily Dose Days Date Category Dose Instructions Lopressor (Metoprolol Tartrate) 50 Mg Tab 50 Mg PO BID 09/22/16 Reported Novolin N (Insulin Human NPH) 100 Units/Ml Susp 4 Units SQ HS 09/22/16 Reported BS UNDER 80 = 0 UNITS (DON'T TAKE ANY) Novolin N (Insulin Human NPH) 100 Units/Ml Susp 12 Units SQ QAM 09/22/16 Reported BS UNDER 100 TAKE 6 UNITS Jantoven (Warfarin Sodium) 5 Mg Tab 5 Mg PO DAILY 09/22/16 Reported Vitamin D3 (Cholecalciferol) 1,000 Inter.unit Tab 1,000 Interunit PO DAILY 09/22/16 Reported Vitamin B-12 (Cyanocobalamin) 1,000 Mcg Sub 1,000 Mg SL DAILY 09/22/16 Reported Triamcinolone Acetonide (Triamcinolone Acet) 45 Appln/15 Gm Cr 1 Appln TOP BID PRN 09/22/16 Reported Trazodone (Trazodone HCl) 50 Mg Tab 50 Mg PO HS 09/22/16 Reported Aldactone (Spironolactone) 25 Mg Tab 25 Mg PO DAILY 09/22/16 Reported Potassium Gluconate 595 Mg Tab 1,785 Mg PO DAILY 09/22/16 Reported Protonix (Pantoprazole Sodium) 40 Mg Tab 40 Mg PO BID 09/22/16 Reported Nitrostat (Nitroglycerin) 0.4 Mg/1 Tab Subl 0.4 Mg SL UD 09/22/16 Reported Meclizine HCl 12.5 Mg Tab 12.5 Mg PO TID 09/22/16 Reported Mag-Ox (Magnesium Oxide) 400 Mg Tab 400 Mg PO QID 09/22/16 Reported Cozaar (Losartan Potassium) 100 Mg Tab 100 Mg PO DAILY 09/22/16 Reported Ativan (Lorazepam) 0.5 Mg Tab 0.5 Mg PO DAILY PRN 09/22/16 Reported Synthroid (Levothyroxine Sodium) 100 Mcg Tab 100 Mcg PO DAILY 09/22/16 Reported Imdur Ext Rel (Isosorbide Mononitrate) 30 Mg Tabcr 30 Mg PO QAM 09/22/16 Reported [place] 5MG/325MG (Acetaminophen/Hydrocodone Bitart) Tab 1-2 Tablets PO QID PRN 09/22/16 Reported PRN PAIN Lasix (Furosemide) 40 Mg Tab 40 Mg PO QAM 09/22/16 Reported Kp Ferrous Sulfate (Ferrous Sulfate) 325 Mg Tab 325 Mg PO DAILY 30 09/22/16 Reported Cyclobenzaprine HCl 10 Mg Tab 5 Mg PO HS PRN 09/22/16 Reported Caltrate 600+D 600-400 mg-Unit (Calcium Carbonate-Vitamin D) 1 Chw Chw 1 Tab PO DAILY 2/19/17 Reported Aspirin Ec (Aspirin) 81 Mg Tab 81 Mg PO DAILY 09/22/16 Reported Lipitor (Atorvastatin Calcium) 40 Mg Tab 40 Mg PO HS 09/22/16 Reported Norvasc (Amlodipine Besylate) 10 Mg Tab 10 Mg PO DAILY 09/22/16 Reported Review of Systems Constitutional: + weakness, No chills, No fever ENT: No hearing loss Respiratory: No cough, No shortness of breath Cardiac: No chest pain, No edema Abdomen: + diarrhea, + nausea, + pain, + problem reported (dark, loose stools since starting iron), No GI bleeding, No constipation, No vomiting Skin: No itch, No rash Physical Exam Date Time Temp Pulse Resp B/P Pulse Ox O2 Delivery O2 Flow Rate FiO2 09/23/16 08:00 99 Room Air 09/23/16 07:51 36.5 95 18 150/67 99 Room Air 09/23/16 07:16 79 16 98 Room Air 09/23/16 04:00 Room Air 09/23/16 03:54 36.6 77 18 146/70 100 Room Air 09/23/16 02:52 69 16 98 Room Air 09/22/16 23:59 Room Air 09/22/16 23:30 36.5 61 18 120/66 97 Room Air 09/22/16 21:04 36.4 77 20 151/75 98 Room Air 09/22/16 19:40 36.4 77 20 151/75 98 Room Air 09/22/16 19:16 70 19 132/71 98 Room Air 09/22/16 17:30 73 18 130/88 97 Room Air 09/22/16 15:33 67 19 136/63 96 Room Air 09/22/16 14:37 59 09/22/16 13:56 77 18 120/67 09/22/16 13:37 36.4 76 20 109/65 97 Room Air General Appearance: no apparent distress Eyes: PERRL ENT: hearing grossly normal Neck: supple, no adenopathy Respiratory/Chest: lungs clear, normal breath sounds, no respiratory distress, no accessory muscle use Cardiovascular: regular rate, rhythm, no edema, no gallop, no JVD, no murmur Abdomen: normal bowel sounds, soft, no organomegaly, no pulsatile mass, + tenderness (epigastric tenderness with palpation) Neurologic/Psych: alert, normal mood/affect, oriented x 3 Skin: normal color, no jaundice, warm/dry, no rash Laboratory Results Last 24 Hours Test 09/22/16 14:05 09/22/16 14:22 09/22/16 15:32 09/22/16 16:20 White Blood Count 4.60 K/uL Red Blood Count 3.99 M/uL Hemoglobin 11.3 g/dL Hematocrit 33.7 % Mean Corpuscular Volume 84.5 fL Mean Corpuscular Hemoglobin 28.3 pg Mean Corpuscular Hemoglobin Concent 33.5 g/dl Platelet Count 300 K/uL Mean Platelet Volume 9.9 fL Neutrophils (%) (Auto) 71.8 % Lymphocytes (%) (Auto) 13.3 % Monocytes (%) (Auto) 13.0 % Eosinophils (%) (Auto) 1.1 % Basophils (%) (Auto) 0.4 % Neutrophils # (Auto) 3.30 K/uL Lymphocytes # (Auto) 0.61 K/uL Monocytes # (Auto) 0.60 K/uL Eosinophils # (Auto) 0.05 K/uL Basophils # (Auto) 0.02 K/uL RDW Standard Deviation 49.0 fL RDW Coefficient of Variation 15.9 % Immature Granulocyte % (Auto) 0.4 % Immature Granulocyte # (Auto) 0.02 K/uL Sodium Level 134 mmol/L Potassium Level 5.6 mmol/L Chloride Level 99 mmol/L Carbon Dioxide Level 22 mmol/L Anion Gap 13.0 mmol/L Blood Urea Nitrogen 21 mg/dl Creatinine 2.10 mg/dl Est Creatinine Clear Calc Drug Dose 18.0 ml/min Estimated GFR () 25.3 Estimated GFR (Non- 21.8 BUN/Creatinine Ratio 9.8 Random Glucose 142 mg/dl Calcium Level 9.0 mg/dl Total Bilirubin 0.6 mg/dl Direct Bilirubin 0.3 mg/dl Aspartate Amino Transf (AST/SGOT) 66 U/L Alanine Aminotransferase (ALT/SGPT) 40 U/L Alkaline Phosphatase 500 U/L Total Creatine Kinase 40 U/L Creatine Kinase MB 0.6 ng/ml Creatine Kinase MB Ratio 1.5 Troponin I < 0.015 ng/ml Total Protein 8.9 gm/dl Albumin 3.3 gm/dl Lipase 130 U/L Thyroid Stimulating Hormone (TSH) 3.660 uIu/ml Prothrombin Time 30.3 SECONDS Prothromb Time International Ratio 2.7 Activated Partial Thromboplast Time 44.3 SECONDS Partial Thromboplastin Ratio 1.7 Urine Color YELLOW Urine Appearance CLEAR Urine pH 6.5 Urine Specific [place] 1.006 Urine Protein NEG Urine Glucose (UA) NEG Urine Ketones NEG Urine Occult Blood NEG Urine Nitrite NEG Urine Bilirubin NEG Urine Urobilinogen NEG Urine Leukocyte Esterase NEG Test 09/22/16 18:30 09/22/16 20:28 09/23/16 01:48 09/23/16 06:44 Total Creatine Kinase 38 U/L 43 U/L Creatine Kinase MB 0.5 ng/ml 0.9 ng/ml Creatine Kinase MB Ratio 1.3 2.1 Troponin I < 0.015 ng/ml < 0.015 ng/ml Bedside Glucose 114 mg/dl 89 mg/dl Test 09/23/16 07:24 09/23/16 07:29 09/23/16 09:43 09/23/16 11:37 Prothrombin Time 30.4 SECONDS Prothromb Time International Ratio 2.7 Activated Partial Thromboplast Time 43.8 SECONDS Partial Thromboplastin Ratio 1.7 White Blood Count 4.93 K/uL Red Blood Count 3.84 M/uL Hemoglobin 10.4 g/dL Hematocrit 31.4 % Mean Corpuscular Volume 81.8 fL Mean Corpuscular Hemoglobin 27.1 pg Mean Corpuscular Hemoglobin Concent 33.1 g/dl Platelet Count 260 K/uL Mean Platelet Volume 9.3 fL Neutrophils (%) (Auto) 75.9 % Lymphocytes (%) (Auto) 8.1 % Monocytes (%) (Auto) 14.4 % Eosinophils (%) (Auto) 1.0 % Basophils (%) (Auto) 0.2 % Neutrophils # (Auto) 3.74 K/uL Lymphocytes # (Auto) 0.40 K/uL Monocytes # (Auto) 0.71 K/uL Eosinophils # (Auto) 0.05 K/uL Basophils # (Auto) 0.01 K/uL RDW Standard Deviation 47.7 fL RDW Coefficient of Variation 15.9 % Immature Granulocyte % (Auto) 0.4 % Immature Granulocyte # (Auto) 0.02 K/uL Ovalocytes 1+ Sodium Level 140 mmol/L Potassium Level 4.4 mmol/L Chloride Level 107 mmol/L Carbon Dioxide Level 21 mmol/L Anion Gap 12.0 mmol/L Blood Urea Nitrogen 16 mg/dl Creatinine 1.40 mg/dl Est Creatinine Clear Calc Drug Dose 26.9 ml/min Estimated GFR () 41.3 Estimated GFR (Non- 35.6 BUN/Creatinine Ratio 11.4 Random Glucose 91 mg/dl Calcium Level 9.3 mg/dl Magnesium Level 2.3 mg/dl Total Bilirubin 0.5 mg/dl Direct Bilirubin 0.2 mg/dl Aspartate Amino Transf (AST/SGOT) 52 U/L Alanine Aminotransferase (ALT/SGPT) 34 U/L Alkaline Phosphatase 435 U/L Total Protein 8.2 gm/dl Albumin 3.2 gm/dl Total Creatine Kinase 59 U/L Creatine Kinase MB 1.3 ng/ml Creatine Kinase MB Ratio 2.2 Troponin I < 0.015 ng/ml Bedside Glucose 137 mg/dl Impression Patient is a 80 year old female with epigastric abdominal pain, loose/frequent/ urgent stools without any BRBPR, HGB stable at 10 and weight loss. Differentials include GERD, IBS-D, esophagitis, PUD, upper GI bleed, gastroparesis. Will obtain stool samples to out infectious etiology behind loose stools. Plan Hold Coumadin for EGD on 09/24/16 INR today is 2.7 Clears today - hx of gastroparesis and food in stomach on last EGD (AHA, diabetes diet when appropriate) NPO after midnight EGD if all clear from cardiology IVF as needed watch H&H monitor stools continue 40 mg PPI BID stool studies Attg addendum: I interviewed and examined pt, reviewed chart and labs. Pt with post prandial upper abdominal pressure, prior scopes suggesting DM. Admit for worsneing symptoms. CT unremarkable, but labs show alk phos elevation. Will check GGT, lipase, plan EGD and mesenteric dopplers tomorrow. Consider GES if EGD neg.
[2016-09-23] MEDS ORDERED: PERFLUTREN LIPID MICROSPHERE (DEFINITY) IV ONE (12:27)
--- NOTE | 2016-09-23 13:00 | ECHOCARDIOGRAM REPORT ---
*NOTICE TO RECEIVING [employer]Y This information is strictly Confidential and protected under [place] law. [place] law prohibits you from making any further disclosure of this information unless further disclosure is expressly permitted by the written consent of the person to whom it pertains or is authorized by law. A general authorization for the release of medical or other information is not sufficient for this purpose. Hospital accepts no responsibility if the information is made available to any other person, INCLUDING THE PATIENT. Interpretation Summary * Conclusions -- * 1. Normal left ventricular size and systolic function. EF 55-60%. Dyskinetic/aneurysmal apex. No apical thrombus visualized. No left ventricular hypertrophy. * 2. Moderate left atrial dilation. * 3. Mild right atrial dilation. * 4. Aortic valve sclerosis mild, without significant aortic valvular stenosis. * 5. There is mild mitral regurgitation. * 6. There is mild to moderate tricuspid regurgitation. * 7. Normal estimated right ventricular systolic pressure; 36 mmHg. * 8. Technically difficult study, enhanced with IV Definity. * 9. No prior study available for comparison. Procedure Details * A complete two-dimensional transthoracic echocardiogram was performed (2D, M-mode, Doppler and color flow Doppler). * A saline contrast injection was performed to assess for cardiac shunting. * The injection was performed through an intravenous line in the left arm. * The attending nurse who injected the saline contrast was KASANDRA SHANKAR RN. * A total of 20 cc of agitated saline was given. Left Ventricle * Normal left ventricular size and systolic function. EF 55-60%. Dyskinetic/aneurysmal apex. No apical thrombus visualized. No left ventricular hypertrophy. Right Ventricle * The right ventricle is normal in size and function. Atria * The left atrium is moderately dilated. * The right atrium is mildly dilated. * No visualized ASD or PFO. No visualized right to left inter atrial shunt following agitated saline administration. Mitral Valve * There is mild mitral annular calcification. * There is no mitral valve stenosis. * There is mild mitral regurgitation. Tricuspid Valve * The tricuspid valve is not well visualized, but is grossly normal. * There is no tricuspid stenosis. * There is mild to moderate tricuspid regurgitation. Aortic Valve * The aortic valve is trileaflet. * Aortic valve sclerosis mild, without significant aortic valvular stenosis. * Trace aortic regurgitation. Pulmonic Valve * The pulmonary valve is inadequately visualized, but the Doppler data is adequate for interpretation. * There is no pulmonic valvular stenosis. * There is no significant pulmonary regurgitation. Great Vessels * The aortic root is normal size. * Aortic arch of normal dimension. Pericardium/Pleural * There is no pericardial effusion. Great Vessels * Normal inferior vena cava size and collapsability with sniff indicates a normal right atrial pressure of 3 mmHg MMode 2D Measurements and Calculations IVSd 1.1 cm IVSs 1.3 cm LVIDd 4.8 cm LVIDs 3.4 cm LVPWd 1.0 cm LVPWs 1.4 cm IVS/LVPW 1.0 FS 30.4 % EDV(Teich) 108.7 ml ESV(Teich) 46.0 ml EF(Teich) 57.7 % EDV(cubed) 112.1 ml ESV(cubed) 37.8 ml EF(cubed) 66.2 % % IVS thick 24.1 % % LVPW thick 39.3 % LV mass(C)d 181.0 grams LV mass(C)dI 110.8 grams/m\S\2 LV mass(C)s 157.5 grams LV mass(C)sI 96.5 grams/m\S\2 CO(Teich) 5.6 l/min CI(Teich) 3.4 l/min/m\S\2 SV(Teich) 62.7 ml SI(Teich) 38.4 ml/m\S\2 CO(cubed) 6.6 l/min CI(cubed) 4.0 l/min/m\S\2 SV(cubed) 74.3 ml SI(cubed) 45.5 ml/m\S\2 Ao root diam 3.5 cm Ao root area 9.6 cm\S\2 ACS 1.2 cm LA dimension 4.3 cm asc Aorta Diam 3.5 cm LA/Ao 1.2 LVOT diam 2.0 cm LVOT area 3.0 cm\S\2 LVAd ap4 21.6 cm\S\2 LVLd ap4 6.3 cm EDV(MOD-sp4) 76.0 ml EDV(sp4-el) 80.7 ml LVAs ap4 12.2 cm\S\2 LVLs ap4 5.2 cm ESV(MOD-sp4) 34.1 ml ESV(sp4-el) 36.1 ml EF(MOD-sp4) 55.1 % EF(sp4-el) 55.3 % LVAd ap2 17.5 cm\S\2 LVLd ap2 6.9 cm EDV(MOD-sp2) 37.2 ml EDV(sp2-el) 68.0 ml LVAs ap2 9.5 cm\S\2 LVLs ap2 5.4 cm ESV(MOD-sp2) 14.4 ml ESV(sp2-el) 32.1 ml EF(MOD-sp2) 61.3 % EF(sp2-el) 52.8 % CO(MOD-sp4) 3.7 l/min CI(MOD-sp4) 2.3 l/min/m\S\2 SV(MOD-sp4) 41.9 ml SI(MOD-sp4) 25.7 ml/m\S\2 CO(MOD-sp2) 2.0 l/min CI(MOD-sp2) 1.2 l/min/m\S\2 SV(MOD-sp2) 22.8 ml SI(MOD-sp2) 14.0 ml/m\S\2 CO(sp4-el) 4.0 l/min CI(sp4-el) 2.4 l/min/m\S\2 SV(sp4-el) 44.6 ml SI(sp4-el) 27.3 ml/m\S\2 CO(sp2-el) 3.2 l/min CI(sp2-el) 2.0 l/min/m\S\2 SV(sp2-el) 35.9 ml SI(sp2-el) 22.0 ml/m\S\2 Doppler Measurements and Calculations MV E max dianelys 102.1 cm/sec MV V2 max 108.6 cm/sec MV max PG 4.7 mmHg MV V2 mean 60.1 cm/sec MV mean PG 1.7 mmHg MV V2 VTI 22.7 cm MVA(VTI) 2.7 cm\S\2 MV dec time 0.17 sec Ao V2 max 140.7 cm/sec Ao max PG 7.9 mmHg Ao max PG (full) 3.7 mmHg RANDEE(V,A) 2.2 cm\S\2 RANDEE(V,D) 2.2 cm\S\2 AI max dianelys 398.2 cm/sec AI max PG 63.4 mmHg AI dec slope 180.1 cm/sec\S\2 AI P1/2t 647.6 msec LV V1 max PG 4.2 mmHg LV V1 mean PG 1.8 mmHg LV V1 max 102.4 cm/sec LV V1 mean 61.2 cm/sec LV V1 VTI 20.7 cm MR max dianelys 441.1 cm/sec MR max PG 77.8 mmHg SV(LVOT) 62.5 ml SI(LVOT) 38.3 ml/m\S\2 TV E max dianelys 58.3 cm/sec PA V2 max 84.9 cm/sec PA max PG 2.9 mmHg TR max dianelys 289.0 cm/sec RVSP(TR) 36.4 mmHg RAP systole 3.0 mmHg
[2016-09-23] MEDS ORDERED: METOPROLOL SUCC 50MG EXT REL TAB PO ONE (13:15)
--- NOTE | 2016-09-23 13:57 | CARDIOLOGY CONSULTATION ---
DATE OF CONSULTATION: 09/23/2016 TIME: 12:27 p.m. CONSULTING PHYSICIAN: Dr. Judge. REASON FOR CONSULTATION: Orthostatic hypotension. HISTORY OF PRESENT ILLNESS: Mrs. Esteban is a very pleasant 80-year-old female with a history significant for diastolic CHF, CAD, atrial fibrillation, diabetes, dilated ascending aorta, hypertension, dyslipidemia, Sjogrens disease and a history of takotsubo. She also has nonobstructive CAD based on a 2014 cardiac catheterization. Her approximately 3 weeks ago. She has not been eating much since that time. Her decreased oral consumption she believes is due to 2 issues. First, the stress and anxiety from losing her and secondly, abdominal pain. She has been experiencing epigastric abdominal discomfort for 3 or 4 months. It intensifies following oral intake, both food and liquids. It has worsened recently. Yesterday, it was much worse and accompanied by nausea. She has been having diarrhea for years, many episodes per day. She cannot keep track of how many time she goes. Yesterday when she stood up, she felt weak allover and lightheaded. There was no syncope, palpitations, chest pain or shortness of breath. Her blood pressure was monitored and found to be 80/50 mmHg. She then came to the Emergency Department for further evaluation. Although she has not been eating as much, she is trying to keep up with her fluids. She continues to take diuretic such as Lasix 40 mg daily and spironolactone 25 mg daily. She maintains anticoagulation for stroke risk reduction and has dark stools while on iron therapy, but reports no hematochezia. She also denies hematuria or other bleeding. She denies stroke or like symptoms, edema, orthopnea, shortness of breath at rest, chest discomfort, or vomiting. She does have back pain and was diagnosed with a compression fracture. During her hospitalization, amlodipine has been discontinued. Diuretic therapy in the form of spironolactone and Lasix was also held. She continues to take losartan. She typically takes metoprolol as an outpatient, 50 mg twice daily. She has not received metoprolol since being admitted. REVIEW OF SYSTEMS: As above and other review of systems otherwise negative. PAST MEDICAL HISTORY: 1. Permanent atrial fibrillation, on beta khadar for rate control strategy. 2. Chronic anticoagulation for stroke risk reduction. 3. Chronic diastolic CHF. 4. Hypertension. 5. Nonobstructive coronary artery disease, diagnosed in 2013 when she was found to have takotsubo. 6. Dyslipidemia. 7. Dilated ascending aorta, measuring 4 cm on transthoracic echo in November 2015. 8. Diabetes. 9. Sjogren's disease. 10. Acid reflux. 11. Diarrhea. 12. TIA. 13. Compression fracture. 14. Arthritis. 15. Anxiety. 16. Anemia of chronic disease. 17. Chronic kidney disease. 18. Hypothyroidism. 19. Hypomagnesemia. 20. Gastroparesis. 21. Polymyalgia rheumatica. 22. Vitamin D deficiency. 23. Vitamin B12 deficiency. 24. Venous insufficiency. HOME MEDICATIONS: Include amlodipine 10 mg daily, atorvastatin 40 mg daily, aspirin 81 mg daily, ferrous sulfate 325 mg daily, Lasix 40 mg p.o. daily, isosorbide mononitrate 30 mg daily, levothyroxine 100 mcg daily and 150 mcg on Sundays, lorazepam 0.5 mg as needed at bedtime, losartan 100 mg daily, magnesium oxide 400 mg 4 times daily, meclizine p.r.n., metformin 850 mg 3 times daily, metoprolol tartrate 50 mg p.o. b.i.d., Protonix 40 mg twice daily, spironolactone 25 mg daily, trazodone, and warfarin 5 mg daily. INPATIENT MEDICATIONS: Include aspirin 81 mg daily, Lipitor 40 mg daily, ceftriaxone 1 gram IV q. 24 hours, insulin, isosorbide mononitrate 30 mg daily, levothyroxine 100 mcg daily, losartan 100 mg daily, magnesium oxide 400 mg p.o. q.i.d., Protonix 40 mg p.o. b.i.d., Carafate 1 gram at bedtime, Coumadin 5 mg daily, and normal saline 100 mL per hour. She received 2 liters of normal saline thus far. ALLERGIES: SULFA ANTIBIOTICS. SOCIAL HISTORY: Denies tobacco, alcohol or drug abuse. She is a . Her in August of 2016. She has 4 children. Her daughter, Michelle is present at the bedside. She has another daughter named Bee, who is a nurse. FAMILY HISTORY: Her mother had an [facility] and diabetes and at the age of 66. Father at the age of 48 with myocardial infarction. Sister had renal failure. She has 2 sisters with lupus and a sister with diabetes. Two brothers with cancer. PHYSICAL EXAMINATION: VITAL SIGNS: Temperature 36.9 degrees, heart rate 97 beats per minute, respiratory rate 18, blood pressure 125/68 mmHg, and oxygen saturation 96% on room air. Weight 62.6 kg. GENERAL: No acute distress. She is alert and oriented. HEENT: Anicteric sclerae. NECK: No appreciable JVD. No bruits. Normal carotid upstrokes bilaterally. CARDIAC EXAMINATION: PMI was nonpalpable. There was no ventricular heave. Irregularly irregular. Normal S1 and S2. No audible murmurs, rubs or gallops. LUNGS: Clear to auscultation bilaterally without wheezes, rales or rhonchi. ABDOMEN: Soft. Nondistended. Mild tenderness in the epigastric area. No bruits. Normal active bowel sounds. No palpable mass. EXTREMITIES: 1+ right radial pulse. 2+ left radial pulse. 2+ dorsalis pedis pulses bilaterally. No cyanosis or edema. No palpable cords. PSYCHIATRIC: Affect appears appropriate. LABORATORY DATA: White blood cell count 4.93, hemoglobin 10.4, and platelets 260. Sodium 140, potassium 4.4, BUN 16, and creatinine 1.4 down from 2.1. Alkaline phosphatase 435, AST 52, and ALT 34. Albumin 3.2. Troponin undetectable x4. Magnesium 2.3. INR is 2.7. CT scan of the abdomen and pelvis report reviewed from 09/22/2016. No evidence of obstructing urinary tract calculus. Nonobstructive bowel pattern. No evidence of aneurysm of the abdominal aorta or iliac vasculature. Possible early hepatic cirrhotic change. Chest x-ray on 09/22/2016. Images personally reviewed. No infiltrate. Radiology has interpreted as negative chest x-ray. Blood culture is pending. Echocardiogram images personally reviewed. This is a preliminary review. LV systolic function appears normal overall. The apex appears dyskinetic following the administration of IV Definity. There was mild mitral regurgitation and mild to moderate tricuspid regurgitation. The estimated right ventricular systolic pressure was normal at 36 mmHg. There is biatrial dilation. Please see full report to follow. ASSESSMENT AND PLAN: 1. Hypotension: Likely secondary to the fact that she has not been having her usual oral intake while on multiple antihypertensive medications including 2 diuretics. Agree with holding diuretics for now. Agree with holding amlodipine. We will restart metoprolol for her rate control of her atrial fibrillation. At some point, she will likely require some further diuretic therapy for her congestive heart failure, but this can be reevaluated on a daily basis. 2. Abnormal echo with dyskinetic apex: She has a history of takotsubo. Her most recent echo as an outpatient was on 11/09/2015 with normal wall motion reported. There were apical defects on prior nuclear stress. It is not clear if this is entirely a new issue or if it was not well seen on outpatient echo in November 2015. Either way, it should not account for her presentation as her overall LV systolic function is normal. We will change metoprolol tartrate to metoprolol succinate. Continue ARB. She has had a cardiac catheterization, which will be discussed below without significant coronary artery disease, but wall motion abnormalities noted. 3. Hypertension: Her blood pressure is now intermittently hypertensive. We will resume metoprolol as noted above. She will be started on metoprolol succinate 50 mg twice daily replacing metoprolol tartrate, which she had been taking. Continue to hold amlodipine for now. 4. Chronic diastolic congestive heart failure: She was compensated on Lasix 40 mg once daily and spironolactone 25 mg daily. Can hold off for now. Her renal function has improved. Hopefully, she may or may not require the same diuretic dose in the future. Decreased oral intake is likely playing a role with her overall probable dehydration/hypovolemia upon presentation. 5. Nonobstructive coronary artery disease. In 2013, cardiac catheterization demonstrated nonobstructive coronary artery disease with the mid RCA of 40% and mild coronary artery disease within the circumflex and LAD. It also demonstrated moderate hypokinesis of the anterolateral wall, diaphragmatic wall and akinesis of the apex with an EF of 40%. Continue antiplatelet therapy. Continue high intensity statin therapy. No angina. She did not present with acute coronary syndrome. 6. Atrial fibrillation: She is in permanent atrial fibrillation. Resume beta khadar therapy for rate control as noted above. Continue anticoagulation for stroke risk reduction if no contraindications. Coumadin can be held if a GI procedure is being planned. Her INR as an outpatient is followed by Dr. Zambrano, her PCP. 7. Mitral and tricuspid regurgitation: Non-severe. This can be followed over time. 8. Disposition: Plan of care will be communicated with Dr. Burgos in the primary hospitalist service. Thank you for allowing me to participate in the care of Ms. Esteban. Sincerely, DAVIN
[2016-09-23] MEDS: WARFARIN SOD 5 MG TAB PO SCH (16:00)
--- NOTE | 2016-09-23 16:26 | Progress Note ---
Subjective Date of Service: Sep 23, 2016. Subjective pt feels much improved, almost back to baseline, gives history of abdominal pain improved with maalox, for EGD this stay Problem List Medical Problems: (1) Atrial fibrillation Status: Chronic (2) Dehydration Status: Acute (3) Hypotension Status: Acute (4) Weakness Status: Acute Review of Systems Constitutional: No chills, No fever ENT: No hearing loss, No sore throat Respiratory: No cough, No shortness of breath Cardiac: No chest pain, No edema Abdomen: + nausea, + pain, No diarrhea, No vomiting Female : No dysuria, No urinary frequency Objective Vital Signs Date Time Temp Pulse Resp B/P Pulse Ox O2 Delivery O2 Flow Rate FiO2 09/23/16 07:51 36.5 95 18 150/67 99 Room Air 09/23/16 07:16 79 16 98 Room Air 09/23/16 04:00 Room Air 09/23/16 03:54 36.6 77 18 146/70 100 Room Air 09/23/16 02:52 69 16 98 Room Air 09/22/16 23:59 Room Air 09/22/16 23:30 36.5 61 18 120/66 97 Room Air 09/22/16 21:04 36.4 77 20 151/75 98 Room Air 09/22/16 19:40 36.4 77 20 151/75 98 Room Air 09/22/16 19:16 70 19 132/71 98 Room Air 09/22/16 17:30 73 18 130/88 97 Room Air 09/22/16 15:33 67 19 136/63 96 Room Air 09/22/16 14:37 59 09/22/16 13:56 77 18 120/67 09/22/16 13:37 36.4 76 20 109/65 97 Room Air Physical Exam General Appearance: WD/WN, + mild distress Neck: supple, no JVD Respiratory/Chest: chest non-tender, lungs clear, normal breath sounds Cardiovascular: regular rate, rhythm, no murmur Abdomen: normal bowel sounds, soft, + tenderness Extremities: normal inspection, no pedal edema, no calf tenderness Laboratory Results Last 24 Hours Test 09/22/16 14:05 09/22/16 14:22 09/22/16 15:32 09/22/16 16:20 White Blood Count 4.60 K/uL Red Blood Count 3.99 M/uL Hemoglobin 11.3 g/dL Hematocrit 33.7 % Mean Corpuscular Volume 84.5 fL Mean Corpuscular Hemoglobin 28.3 pg Mean Corpuscular Hemoglobin Concent 33.5 g/dl Platelet Count 300 K/uL Mean Platelet Volume 9.9 fL Neutrophils (%) (Auto) 71.8 % Lymphocytes (%) (Auto) 13.3 % Monocytes (%) (Auto) 13.0 % Eosinophils (%) (Auto) 1.1 % Basophils (%) (Auto) 0.4 % Neutrophils # (Auto) 3.30 K/uL Lymphocytes # (Auto) 0.61 K/uL Monocytes # (Auto) 0.60 K/uL Eosinophils # (Auto) 0.05 K/uL Basophils # (Auto) 0.02 K/uL RDW Standard Deviation 49.0 fL RDW Coefficient of Variation 15.9 % Immature Granulocyte % (Auto) 0.4 % Immature Granulocyte # (Auto) 0.02 K/uL Sodium Level 134 mmol/L Potassium Level 5.6 mmol/L Chloride Level 99 mmol/L Carbon Dioxide Level 22 mmol/L Anion Gap 13.0 mmol/L Blood Urea Nitrogen 21 mg/dl Creatinine 2.10 mg/dl Est Creatinine Clear Calc Drug Dose 18.0 ml/min Estimated GFR () 25.3 Estimated GFR (Non- 21.8 BUN/Creatinine Ratio 9.8 Random Glucose 142 mg/dl Calcium Level 9.0 mg/dl Total Bilirubin 0.6 mg/dl Direct Bilirubin 0.3 mg/dl Aspartate Amino Transf (AST/SGOT) 66 U/L Alanine Aminotransferase (ALT/SGPT) 40 U/L Alkaline Phosphatase 500 U/L Total Creatine Kinase 40 U/L Creatine Kinase MB 0.6 ng/ml Creatine Kinase MB Ratio 1.5 Troponin I < 0.015 ng/ml Total Protein 8.9 gm/dl Albumin 3.3 gm/dl Lipase 130 U/L Thyroid Stimulating Hormone (TSH) 3.660 uIu/ml Prothrombin Time 30.3 SECONDS Prothromb Time International Ratio 2.7 Activated Partial Thromboplast Time 44.3 SECONDS Partial Thromboplastin Ratio 1.7 Urine Color YELLOW Urine Appearance CLEAR Urine pH 6.5 Urine Specific [place] 1.006 Urine Protein NEG Urine Glucose (UA) NEG Urine Ketones NEG Urine Occult Blood NEG Urine Nitrite NEG Urine Bilirubin NEG Urine Urobilinogen NEG Urine Leukocyte Esterase NEG Test 09/22/16 18:30 09/22/16 20:28 09/23/16 01:48 09/23/16 06:44 Total Creatine Kinase 38 U/L 43 U/L Creatine Kinase MB 0.5 ng/ml 0.9 ng/ml Creatine Kinase MB Ratio 1.3 2.1 Troponin I < 0.015 ng/ml < 0.015 ng/ml Bedside Glucose 114 mg/dl 89 mg/dl Test 09/23/16 07:24 09/23/16 07:29 Prothrombin Time 30.4 SECONDS Prothromb Time International Ratio 2.7 Activated Partial Thromboplast Time 43.8 SECONDS Partial Thromboplastin Ratio 1.7 White Blood Count 4.93 K/uL Red Blood Count 3.84 M/uL Hemoglobin 10.4 g/dL Hematocrit 31.4 % Mean Corpuscular Volume 81.8 fL Mean Corpuscular Hemoglobin 27.1 pg Mean Corpuscular Hemoglobin Concent 33.1 g/dl Platelet Count 260 K/uL Mean Platelet Volume 9.3 fL Neutrophils (%) (Auto) 75.9 % Lymphocytes (%) (Auto) 8.1 % Monocytes (%) (Auto) 14.4 % Eosinophils (%) (Auto) 1.0 % Basophils (%) (Auto) 0.2 % Neutrophils # (Auto) 3.74 K/uL Lymphocytes # (Auto) 0.40 K/uL Monocytes # (Auto) 0.71 K/uL Eosinophils # (Auto) 0.05 K/uL Basophils # (Auto) 0.01 K/uL RDW Standard Deviation 47.7 fL RDW Coefficient of Variation 15.9 % Immature Granulocyte % (Auto) 0.4 % Immature Granulocyte # (Auto) 0.02 K/uL Ovalocytes 1+ Assessment and Plan Atrial fibrillation with lateral EKG changes, abdominal pain, recent of and decreased po intake Afib/ Abnormal ECG serial enzymes, due to lower blood pressure Hold amlodipine 10 mg by mouth daily, furosemide 40 mg by mouth every morning, and spironolactone 25 mg by mouth daily. Continue IMDUR extended release 30 mg by mouth every morning, losartan 100 mg by mouth daily, Continue warfarin at present dosing, INR therapeutic at 2.7, hold as per GI note of 09/23 for possible EGD Diabetes Mellitus- Humulin N 12 units am and 4 units pm. plus ssi. GERD/gastroparesis--continue pantoprazole 40 mg by mouth twice a day. Greatly improved with Carafate 1 g by mouth 4 times a day Her actuarial technician Dr. Dailey. is considering EGD Hypothyroidism--continue levothyroxine sodium 100 g by mouth daily.
[2016-09-23] MEDS: ATORVASTATIN 40 MG TAB PO SCH (21:29)
[2016-09-23] MEDS: METOPROLOL SUCC 50MG EXT REL TAB PO SCH (21:30)
[2016-09-23] MEDS: CEFTRIAXONE SOD INJ 1 GM in DEXTROSE 5% ADD-VANTAGE 50ML 50 ML IV SCH (21:30)
[2016-09-23] MEDS: LORAZEPAM 0.5 MG TAB PO PRN (21:37)
[2016-09-24] MEDS: LEVOTHYROXINE 100 MCG TAB PO SCH (02:26)
[2016-09-24] MEDS: SUCRALFATE 1 GM/10 ML UDC PO SCH ×4 (02:26→21:32)
[2016-09-24 03:03] VITALS: PULSE 90; O2SAT 94
[2016-09-24] MEDS: IPRATROPIUM BROMIDE NEB SOLN 0.02% 2.5 ML VIAL INH SCH ×4 (03:03→19:43)
[2016-09-24] MEDS: LEVALBUTEROL 1.25MG/0.5ML NEB INH SCH ×4 (03:03→19:43)
[2016-09-24] MEDS: SODIUM CHLORIDE 0.9% 1000ML 1,000 ML IV SCH ×2 (06:00→18:00)
[2016-09-24] MEDS: INSULIN ASPART 100 UNITS/ML 3 ML PEN SC SCH ×4 (06:30→21:50)
[2016-09-24 06:36] LABS: BASO % 0.2 %; BASO ABS # 0.01 K/uL (0-0.2); COMPLETE YES; EOS % 1.6 %; HEMATOCRIT 29.1 % (37-47); IG% 0.2 %; LYMPH % 8.7 %; LYMPH ABS # 0.43 K/uL (1.2-3.4); MEAN CELL VOLUME 83.4 fL (80-100); MEAN CORPUSCULAR HEMOGLOBIN 28.1 pg (25-34); MEAN CORPUSCULAR HGB CONC 33.7 g/dl (32-36); MEAN PLATELET VOLUME 9.5 fL (7.4-10.4); MONO % 15.2 %; NEUT % 74.1 %; PLATELET COUNT 237 K/uL (130-400); RED BLOOD COUNT 3.49 M/uL (4.2-5.4); WHITE BLOOD COUNT 4.94 K/uL (4.8-10.8)
[2016-09-24 06:45] LABS: INR 2.7 (0.9-1.1); PARTIAL THROMBOPLASTIN RATIO 1.6; PROTHROMBIN TIME (PATIENT) 29.7 SECONDS (9.0-12.0)
[2016-09-24 07:05] VITALS: BP 145/69; PULSE 69; TEMP 36.9; O2SAT 96
[2016-09-24 07:08] LABS: BUN/CREATININE RATIO 11.1 (10-20); CALCIUM 8.6 mg/dl (8.5-10.1); CREATININE 1.2 mg/dl (0.60-1.20); MAGNESIUM 2.2 mg/dl (1.8-2.4)
--- NOTE | 2016-09-24 08:09 | DIAGNOSTIC IMAGING REPORT ---
DUPLEX ULTRASOUND OF THE HEPATIC AND PORTAL VEINS CLINICAL HISTORY: elevated alk phos COMPARISON STUDY: No previous studies for comparison. FINDINGS: The portal and hepatic veins are patent with normal directional flow. There is dilatation of the common bile duct which measures up to 12 mm. IMPRESSION: 1. Patent hepatic and portal veins with normal directional flow Electronically signed by: Oneal Perry M.D. 09/24/2016 8:08 AM Dictated Date/Time: 09/24/2016 8:03 AM
[2016-09-24] MEDS: INSULIN HUMAN NPH SQ SCH ×2 (09:00→21:48)
[2016-09-24] MEDS ORDERED: PHYTONADIONE INJ 5 MG in SODIUM CHLORIDE 0.9% 50ML 50 ML IV ONE (11:00)
--- NOTE | 2016-09-24 11:03 | Gastroenterology Progress Note ---
Progress Note Date of Service: Sep 24, 2016 Subjective Pt evaluation today including: conversation w/ patient, conversation w/ family , physical exam, lab review Patient was made NPO for EGD today. INR elevated at 2.7, procedure postponed. She reports that she is feeling slightly better now with PPI BID and carafate. She is still reporting some epigastric pain with palpation. No other complaints. GGT pending - alk phos 411 Liver US 09/24/16: The portal and hepatic veins are patent with normal directional flow.There is dilatation of the common bile duct which measures up to [address] abd 09/23/16: Prior cholecystectomy. Mild prominence of the biliary ductal system most likely a postoperative basis, Possible early hepatic cirrhotic change Review of Systems Constitutional: No chills, No fever Respiratory: No cough, No shortness of breath Cardiac: No chest pain, No edema Abdomen: + nausea, + pain, No constipation, No diarrhea, No vomiting Medications Current Inpatient Medications Medications (Trade) Dose Ordered Sig/Jay Route Start Time Stop Time Status Last Admin Dose Admin Acetaminophen (Tylenol Tab) 650 mg Q4H PRN PO 09/22/16 18:00 10/22/16 17:59 Nitroglycerin (Nitrostat Tab) 0.4 mg UD PRN SL 09/22/16 18:00 10/22/16 17:59 Aspirin (Ecotrin Tab) 81 mg DAILY PO 09/23/16 09:00 10/23/16 08:59 09/23/16 07:55 81 MG Atorvastatin Calcium (Lipitor Tab) 40 mg HS PO 09/22/16 22:00 10/22/16 21:59 09/23/16 21:29 40 MG Cholecalciferol (Vitamin D Tab) 1,000 inter.unit DAILY PO 09/23/16 09:00 10/23/16 08:59 09/23/16 07:54 1,000 INTER.UNIT Cyclobenzaprine HCl (Flexeril Tab) 5 mg HS PRN PO 09/22/16 18:00 10/22/16 17:59 Acetaminophen/ Hydrocodone Bitart ([place] 5/325 Tab) 1 tab QID PRN PO 09/22/16 18:00 10/06/16 17:59 09/23/16 21:36 1 TAB Insulin Human NPH (novoLIN-N NPH) 4 units HS SQ 09/22/16 22:00 10/22/16 21:59 09/23/16 21:41 4 UNITS Insulin Human NPH (novoLIN-N NPH) 12 units QAM SQ 09/23/16 09:00 10/23/16 08:59 09/23/16 08:01 12 UNITS Isosorbide Mononitrate (Imdur Ext Rel Tab) 30 mg QAM PO 09/23/16 09:00 10/23/16 08:59 09/23/16 07:55 30 MG Levothyroxine Sodium (Synthroid Tab) 100 mcg DAILYBB PO 09/23/16 06:00 10/23/16 05:59 09/23/16 06:26 100 MCG Lorazepam (Ativan Tab) 0.5 mg DAILY PRN PO 09/22/16 18:00 10/22/16 17:59 09/23/16 21:37 0.5 MG Losartan Potassium (coZAAR TAB) 100 mg DAILY PO 09/23/16 09:00 10/23/16 08:59 09/23/16 07:54 100 MG Magnesium Oxide (Mag-Ox Tab) 400 mg QID PO 09/22/16 22:00 10/22/16 21:59 09/23/16 21:30 400 MG Pantoprazole Sodium (Protonix Tab) 40 mg BID PO 09/22/16 22:00 10/22/16 21:59 09/23/16 21:29 40 MG Triamcinolone Acetonide (Kenalog 0.1% Cream) 1 appln BID PRN EXT 09/22/16 18:00 10/22/16 17:59 Warfarin Sodium (Coumadin Tab) 5 mg DAILY@1600 PO 09/22/16 22:00 10/22/16 21:59 Future Hold 09/22/16 22:34 5 MG Ondansetron HCl 4 mg 4 mg Q6H PRN IV 09/22/16 18:00 10/22/16 17:59 Ceftriaxone Sodium/Dextrose (Rocephin Inj/ Dextrose Add-[place] 50ML) 50 ml @ 100 mls/hr Q24H IV 09/22/16 22:00 09/29/16 21:59 09/23/16 21:30 100 MLS/HR Insulin Aspart (novoLOG ASPART) SLIDING SCALE If C... ACHS SC 09/22/16 22:00 10/22/16 21:59 09/23/16 21:40 2 UNITS Glucose (Glucose 40% Gel) UD PRN PO 09/22/16 18:15 10/22/16 18:14 Glucose (Glucose Chew Tab) 1 tabs UD PRN PO 09/22/16 18:15 10/22/16 18:14 Dextrose (Dextrose 50% 50ML Syringe) 50 ml UD PRN IV 09/22/16 18:15 10/22/16 18:14 Glucagon (Glucagon Inj) 1 mg UD PRN SQ 09/22/16 18:15 10/22/16 18:14 Sucralfate (Carafate Susp) 1 gm ACHS PO 09/22/16 22:00 10/22/16 21:59 09/23/16 21:28 1 GM Ipratropium [place] (Atrovent 0.02% 0.5MG/2.5ML Neb) 0.5 mg Q6R INH 09/23/16 03:00 10/23/16 02:59 09/24/16 03:03 0.5 MG Levalbuterol (Xopenex 1.25MG/ 0.5ML Neb) 1.25 mg Q6R INH 09/23/16 03:00 10/23/16 02:59 09/24/16 03:03 1.25 MG Ipratropium [place] (Atrovent 0.02% 0.5MG/2.5ML Neb) 0.5 mg Q2H PRN INH 09/22/16 22:30 10/22/16 22:29 Levalbuterol 1.25 mg 1.25 mg Q2H PRN INH 09/22/16 22:30 10/22/16 22:29 Sodium Chloride (Nss 1000ml) 1,000 ml @ 100 mls/hr Q10H IV 09/23/16 00:00 10/23/16 00:00 09/24/16 06:00 100 MLS/HR Metoprolol Succinate 50 mg 50 mg BID PO 09/23/16 21:00 10/23/16 20:59 09/23/16 21:30 50 MG Phytonadione/ Sodium Chloride ([place]qua-[place] Inj/Nss 50ml) 50.5 ml @ 101 mls/hr NOW ONCE IV 09/24/16 11:00 09/24/16 11:29 Objective Vital Signs Date Time Temp Pulse Resp B/P Pulse Ox O2 Delivery O2 Flow Rate FiO2 09/24/16 07:05 36.9 69 16 145/69 96 Room Air 09/24/16 03:03 90 16 94 Room Air 09/24/16 00:00 Room Air 09/23/16 23:39 36.8 88 16 129/70 97 Room Air 09/23/16 22:09 90 16 97 Room Air 09/23/16 19:35 36.7 83 20 96 09/23/16 16:00 96 Room Air 09/23/16 15:10 36.7 83 20 105/70 97 Room Air 09/23/16 14:39 92 16 97 Room Air 09/23/16 12:04 36.9 97 18 125/68 96 Room Air 09/23/16 12:00 98 Room Air Physical Exam General Appearance: no apparent distress Eyes: PERRL ENT: hearing grossly normal Neck: supple, trachea midline Respiratory/Chest: lungs clear, normal breath sounds, no respiratory distress, no accessory muscle use Cardiovascular: regular rate, rhythm, no edema, no gallop, no JVD, no murmur Abdomen: normal bowel sounds, soft, no organomegaly, no pulsatile mass, + tenderness (epigastric tenderness with palpation, does not radiate, feels like a burning pressure ) Neurologic/Psych: alert, normal mood/affect, oriented x 3 Skin: normal color, no jaundice, warm/dry, no rash Laboratory Results Last 24 Hours Test 09/23/16 11:37 09/23/16 16:28 09/23/16 17:54 09/23/16 20:06 Bedside Glucose 137 mg/dl 197 mg/dl 188 mg/dl Test 09/24/16 06:15 09/24/16 08:09 White Blood Count 4.94 K/uL Red Blood Count 3.49 M/uL Hemoglobin 9.8 g/dL Hematocrit 29.1 % Mean Corpuscular Volume 83.4 fL Mean Corpuscular Hemoglobin 28.1 pg Mean Corpuscular Hemoglobin Concent 33.7 g/dl Platelet Count 237 K/uL Mean Platelet Volume 9.5 fL Neutrophils (%) (Auto) 74.1 % Lymphocytes (%) (Auto) 8.7 % Monocytes (%) (Auto) 15.2 % Eosinophils (%) (Auto) 1.6 % Basophils (%) (Auto) 0.2 % Neutrophils # (Auto) 3.66 K/uL Lymphocytes # (Auto) 0.43 K/uL Monocytes # (Auto) 0.75 K/uL Eosinophils # (Auto) 0.08 K/uL Basophils # (Auto) 0.01 K/uL RDW Standard Deviation 49.1 fL RDW Coefficient of Variation 16.1 % Immature Granulocyte % (Auto) 0.2 % Immature Granulocyte # (Auto) 0.01 K/uL Prothrombin Time 29.7 SECONDS Prothromb Time International Ratio 2.7 Activated Partial Thromboplast Time 42.1 SECONDS Partial Thromboplastin Ratio 1.6 Sodium Level 141 mmol/L Potassium Level 4.0 mmol/L Chloride Level 108 mmol/L Carbon Dioxide Level 21 mmol/L Anion Gap 12.0 mmol/L Blood Urea Nitrogen 13 mg/dl Creatinine 1.20 mg/dl Est Creatinine Clear Calc Drug Dose 31.4 ml/min Estimated GFR () 49.8 Estimated GFR (Non- 43.0 BUN/Creatinine Ratio 11.1 Random Glucose 86 mg/dl Calcium Level 8.6 mg/dl Magnesium Level 2.2 mg/dl Total Bilirubin 0.4 mg/dl Direct Bilirubin 0.2 mg/dl Aspartate Amino Transf (AST/SGOT) 52 U/L Alanine Aminotransferase (ALT/SGPT) 30 U/L Alkaline Phosphatase 411 U/L Total Protein 7.8 gm/dl Albumin 2.8 gm/dl Lipase 138 U/L Bedside Glucose 93 mg/dl Assessment and Plan APatient is a 80 year old female with epigastric abdominal pain, loose/frequent/ urgent stools without any BRBPR, HGB stable at 10 and weight loss. Differentials include GERD, IBS-D, esophagitis, PUD, upper GI bleed, gastroparesis. Will obtain stool samples to out infectious etiology behind loose stools. Hold Coumadin for EGD on 09/25/16 or 09/26/16 INR today is 2.7 NPO after midnight IV VIT K today Clears today - hx of gastroparesis and food in stomach on last EGD (AHA, diabetes diet when appropriate) IVF as needed watch H&H monitor stools continue 40 mg PPI BID stool studies gastric emptying studies if EGD negative Attg addendum: I interviewed and examined pt, reviewed chart and labs. Pt with improved symptoms after fasting. EGD not done today. Labs hsow normal lipase, persistent alk phos elevation; GGT pending. Uls does not show PVT, but does show yolanda dil 12 mm. Will plan for EGD tomorrow. She can be discharged home tomorrow with outpt f/ u. Will plan for emptying study and further testing for alk phos as outpt.
[2016-09-24 11:05] VITALS: BP 132/76; PULSE 82; O2SAT 98
[2016-09-24] MEDS: LOSARTAN POTASSIUM 50 MG TAB PO SCH (12:05)
[2016-09-24] MEDS: CHOLECALCIFEROL 1000 INTER.UNIT TAB PO SCH (12:05)
[2016-09-24] MEDS: ASPIRIN 81 MG ECTAB PO SCH (12:05)
[2016-09-24] MEDS: METOPROLOL SUCC 50MG EXT REL TAB PO SCH ×2 (12:05→21:27)
[2016-09-24] MEDS: ISOSORBIDE MONONITRATE 30 MG TABCR PO SCH (12:06)
[2016-09-24] MEDS: MAGNESIUM OXIDE 400 MG TAB PO SCH ×4 (12:06→21:31)
[2016-09-24] MEDS: PANTOprazole SOD 40 MG TAB PO SCH ×2 (12:27→21:31)
[2016-09-24 15:13] VITALS: BP 133/72; PULSE 70; TEMP 36.7; O2SAT 97
--- NOTE | 2016-09-24 16:55 | Progress Note ---
Subjective Date of Service: Sep 24, 2016. Subjective this pt is feeling better but is anxious about getting EGD for possibility of stricture. did have elevated INR and will have vitamin K and likely EGD tomorrow Problem List Medical Problems: (1) Atrial fibrillation Status: Chronic (2) Dehydration Status: Acute (3) Hypotension Status: Acute (4) Weakness Status: Acute Review of Systems Constitutional: No chills, No fever, No weakness Respiratory: No cough, No shortness of breath Cardiac: No chest pain, No edema Abdomen: No diarrhea, No nausea, No pain, No vomiting Female : No dysuria, No urinary frequency Objective Vital Signs Date Time Temp Pulse Resp B/P Pulse Ox O2 Delivery O2 Flow Rate FiO2 09/24/16 07:05 36.9 69 16 145/69 96 Room Air 09/24/16 03:03 90 16 94 Room Air 09/24/16 00:00 Room Air 09/23/16 23:39 36.8 88 16 129/70 97 Room Air 09/23/16 22:09 90 16 97 Room Air 09/23/16 19:35 36.7 83 20 96 09/23/16 16:00 96 Room Air 09/23/16 15:10 36.7 83 20 105/70 97 Room Air 09/23/16 14:39 92 16 97 Room Air 09/23/16 12:04 36.9 97 18 125/68 96 Room Air 09/23/16 12:00 98 Room Air Physical Exam General Appearance: WD/WN, + mild distress Neck: supple, no JVD Respiratory/Chest: chest non-tender, lungs clear, normal breath sounds Cardiovascular: regular rate, rhythm, no murmur Abdomen: normal bowel sounds, non tender, soft Extremities: no pedal edema, no calf tenderness Neurologic/Psychiatric: alert, oriented x 3 Laboratory Results Last 24 Hours Test 09/23/16 09:43 09/23/16 11:37 09/23/16 16:28 09/23/16 17:54 Total Creatine Kinase 59 U/L Creatine Kinase MB 1.3 ng/ml Creatine Kinase MB Ratio 2.2 Troponin I < 0.015 ng/ml Bedside Glucose 137 mg/dl 197 mg/dl Test 09/23/16 20:06 09/24/16 06:15 09/24/16 08:09 Bedside Glucose 188 mg/dl 93 mg/dl White Blood Count 4.94 K/uL Red Blood Count 3.49 M/uL Hemoglobin 9.8 g/dL Hematocrit 29.1 % Mean Corpuscular Volume 83.4 fL Mean Corpuscular Hemoglobin 28.1 pg Mean Corpuscular Hemoglobin Concent 33.7 g/dl Platelet Count 237 K/uL Mean Platelet Volume 9.5 fL Neutrophils (%) (Auto) 74.1 % Lymphocytes (%) (Auto) 8.7 % Monocytes (%) (Auto) 15.2 % Eosinophils (%) (Auto) 1.6 % Basophils (%) (Auto) 0.2 % Neutrophils # (Auto) 3.66 K/uL Lymphocytes # (Auto) 0.43 K/uL Monocytes # (Auto) 0.75 K/uL Eosinophils # (Auto) 0.08 K/uL Basophils # (Auto) 0.01 K/uL RDW Standard Deviation 49.1 fL RDW Coefficient of Variation 16.1 % Immature Granulocyte % (Auto) 0.2 % Immature Granulocyte # (Auto) 0.01 K/uL Prothrombin Time 29.7 SECONDS Prothromb Time International Ratio 2.7 Activated Partial Thromboplast Time 42.1 SECONDS Partial Thromboplastin Ratio 1.6 Sodium Level 141 mmol/L Potassium Level 4.0 mmol/L Chloride Level 108 mmol/L Carbon Dioxide Level 21 mmol/L Anion Gap 12.0 mmol/L Blood Urea Nitrogen 13 mg/dl Creatinine 1.20 mg/dl Est Creatinine Clear Calc Drug Dose 31.4 ml/min Estimated GFR () 49.8 Estimated GFR (Non- 43.0 BUN/Creatinine Ratio 11.1 Random Glucose 86 mg/dl Calcium Level 8.6 mg/dl Magnesium Level 2.2 mg/dl Total Bilirubin 0.4 mg/dl Direct Bilirubin 0.2 mg/dl Aspartate Amino Transf (AST/SGOT) 52 U/L Alanine Aminotransferase (ALT/SGPT) 30 U/L Alkaline Phosphatase 411 U/L Total Protein 7.8 gm/dl Albumin 2.8 gm/dl Lipase 138 U/L Assessment and Plan Atrial fibrillation with lateral EKG changes, abdominal pain, recent of and decreased po intake Afib/ Abnormal ECG negative serial enzymes, due to lower blood pressure held amlodipine 10 mg by mouth daily, furosemide 40 mg by mouth every morning, and spironolactone 25 mg by mouth daily. Continue IMDUR extended release 30 mg by mouth every morning, losartan 100 mg by mouth daily, hold coumadin as per GI note of 09/23 give vitain K for possible EGD 09/25 symptoms are more of gastritis or pud, likely from stress of recent events, egd pending --continue pantoprazole 40 mg by mouth twice a day. Greatly improved with Carafate 1 g by mouth 4 times a day Diabetes Mellitus- Humulin N 12 units am and 4 units pm. plus ssi. Hypothyroidism--continue levothyroxine sodium 100 g by mouth daily.
[2016-09-24 17:56] LABS: POINT OF CARE PRO-BNP 2822 pg/ml (0-1800)
[2016-09-24 18:01] LABS: POINT OF CARE PRO-BNP 2822 pg/ml (0-1800)
[2016-09-24 19:43] VITALS: PULSE 69; O2SAT 98
--- NOTE | 2016-09-24 20:21 | DIAGNOSTIC IMAGING REPORT ---
DUPLEX MESENTERIC ULTRASOUND CLINICAL HISTORY: please rule out obstruction of celiac and mesenteric arteries. Generalized abdominal pain. COMPARISON STUDY: Abdomen and pelvis CT 09/22/2016. FINDINGS: Velocities and waveforms of the celiac artery, splenic artery, superior mesenteric artery, and inferior mesenteric artery are within normal limits. No mesenteric arterial occlusion or significant stenosis. Hepatic artery appears patent. IMPRESSION: No hemodynamically significant stenosis or occlusion within the visualized mesenteric arteries Electronically signed by: Miky Wilder M.D. 09/24/2016 8:19 PM Dictated Date/Time: 09/24/2016 8:17 PM
[2016-09-24] MEDS: LORAZEPAM 0.5 MG TAB PO PRN (21:27)
[2016-09-24] MEDS: ATORVASTATIN 40 MG TAB PO SCH (21:30)
[2016-09-24] MEDS: CEFTRIAXONE SOD INJ 1 GM in DEXTROSE 5% ADD-VANTAGE 50ML 50 ML IV SCH (21:33)
[2016-09-24] MEDS: HYDROCODONE/ACETAMOPHEN 5/325MG TAB PO PRN (21:33)
[2016-09-24 22:55] VITALS: BP 136/80; PULSE 76; TEMP 36.8; O2SAT 98
[2016-09-25] MEDS ORDERED: NURSING DECISION MEDICATION ORDER SCH (01:30)
[2016-09-25] MEDS: SODIUM CHLORIDE 0.9% 1000ML 1,000 ML IV SCH ×2 (01:38→14:42)
[2016-09-25] MEDS: LEVALBUTEROL 1.25MG/0.5ML NEB INH SCH ×3 (02:49→14:35)
[2016-09-25] MEDS: IPRATROPIUM BROMIDE NEB SOLN 0.02% 2.5 ML VIAL INH SCH ×3 (02:49→14:35)
[2016-09-25] MEDS: SUCRALFATE 1 GM/10 ML UDC PO SCH ×2 (05:38→11:00)
[2016-09-25] MEDS: LEVOTHYROXINE 100 MCG TAB PO SCH (05:38)
[2016-09-25] MEDS: INSULIN ASPART 100 UNITS/ML 3 ML PEN SC SCH ×2 (06:00→12:38)
[2016-09-25 06:31] LABS: BASO % 0.3 %; BASO ABS # 0.01 K/uL (0-0.2); COMPLETE YES; HEMATOCRIT 29.4 % (37-47); IG% 0.3 %; LYMPH % 13.5 %; LYMPH ABS # 0.54 K/uL (1.2-3.4); MEAN CELL VOLUME 82.6 fL (80-100); MEAN CORPUSCULAR HEMOGLOBIN 27.2 pg (25-34); MEAN PLATELET VOLUME 9.6 fL (7.4-10.4); MONO % 20.5 %; NEUT % 63.4 %; PLATELET COUNT 255 K/uL (130-400); RED BLOOD COUNT 3.56 M/uL (4.2-5.4)
[2016-09-25 06:37] LABS: INR 1.2 (0.9-1.1); PARTIAL THROMBOPLASTIN RATIO 1.2; PROTHROMBIN TIME (PATIENT) 13.3 SECONDS (9.0-12.0)
[2016-09-25 07:01] LABS: BUN/CREATININE RATIO 8.8 (10-20); CALCIUM 8.6 mg/dl (8.5-10.1)
[2016-09-25 07:09] VITALS: PULSE 70; O2SAT 92
[2016-09-25 07:46] VITALS: BP 146/78; PULSE 80; TEMP 36.7; O2SAT 98
[2016-09-25 07:58] VITALS: O2SAT 98
[2016-09-25] MEDS: MAGNESIUM OXIDE 400 MG TAB PO SCH ×2 (09:00→13:51)
--- NOTE | 2016-09-25 10:03 | Clinical Documentation Query ---
CLINICAL DOCUMENTATION QUERY Dr. PETER, In your clinical opinion is this patient being managed for: ( ) Acute kidney failure on CKD stage III ( ) Other explanation of clinical findings (Please Explain) ( ) Unable to determine (Please Define) ( ) Need to Discuss ( ) Not Agree The medical record reflects the following clinical findings, treatment, and risk factors. Clinical Indicators:80 yo female presenting with abd pain and weakness. Initial Cr 2.10 which has trended down to Cr 1.0. Review of historical Cr range shows 1.1-1.4. GFR range of 35-55.3. Treatment: IV fluid bolus in ER then continuous, PRP monitoring Risk Factors: age, DM, A fib, HTN Please clarify and document your clinical opinion in the progress notes and discharge summary. Terms such as "probable", "suspected", "likely", "questionable", "possible", or "still to be ruled out" are acceptable. IF IN AGREEMENT, YOU MUST DOCUMENT ABOVE DIAGNOSTIC STATEMENT IN DAILY PROGRESS NOTES AND DISCHARGE SUMMARY. This document is not part of the patient's record. Thank You, Liseth Moreno, DAYANA [phone]
[2016-09-25] MEDS: INSULIN HUMAN NPH SQ SCH (10:13)
[2016-09-25] MEDS ORDERED: NURSING VERBAL MED ORDER ONE (10:15)
[2016-09-25 10:33] VITALS: BP 146/78; PULSE 80; TEMP 36.7; O2SAT 98
[2016-09-25] MEDS ORDERED: PROPOFOL IV EMULSION 10 MG/ML 20 ML VIAL IV ONE (10:47)
[2016-09-25] MEDS ORDERED: LIDOCAINE HCL 2% 2 ML VIAL (20MG/ML) ONE (10:47)
--- NOTE | 2016-09-25 12:24 | GI REPORT ---
Procedure Date: 09/25/2016 12:03 PM Procedure: Upper GI endoscopy Indications: Anorexia, Early satiety Medicines: See the Anesthesia note for documentation of the administered medications Complications: No immediate complications. Estimated Blood Loss: Estimated blood loss: none. Procedure: Pre-Anesthesia Assessment: - Prior to the procedure, a History and Physical was performed, and patient medications, allergies and sensitivities were reviewed. The patient's tolerance of previous anesthesia was reviewed. - The risks and benefits of the procedure and the sedation options and risks were discussed with the patient. All questions were answered and informed consent was obtained. - Patient identification and proposed procedure were verified prior to the procedure by the physician and the nurse. The procedure was verified in the pre-procedure area. - Pre-procedure physical examination revealed no contraindications to sedation. - After reviewing the risks and benefits, the patient was deemed in satisfactory condition to undergo the procedure. After obtaining informed consent, the endoscope was passed under direct vision. Throughout the procedure, the patient's blood pressure, pulse, and oxygen saturations were monitored continuously. The scope was introduced through the mouth, and advanced to the third part of duodenum. The upper GI endoscopy was accomplished without difficulty. The patient tolerated the procedure well. Findings: The esophagus was normal. The stomach was normal. The examined duodenum was normal. The cardia and gastric fundus were normal on retroflexion. Impression: - Normal esophagus. - Normal stomach. - No endoscopic evidence of gastroparesis. - Normal examined duodenum. - No specimens collected. Recommendation: - [facility]. Neil Swift M.D. Neil Swift MD 09/25/2016 12:23:54 PM This report has been signed electronically. Note Initiated On: 09/25/2016 12:03 PM I attest to the content of the Intraoperative Record and orders documented therein, exceptions below
--- NOTE | 2016-09-25 13:40 | Anesthesiology Progress Note ---
Anesthesia Post Op Note Date & Time Sep 25, 2016 at 13:40 Vital Signs Pain Intensity: 0.0 Vital Signs Past 12 Hours Date Time Temp Pulse Resp B/P Pulse Ox O2 Delivery O2 Flow Rate FiO2 09/25/16 12:24 76 16 136/71 97 Room Air 09/25/16 12:09 87 16 113/56 98 Room Air 09/25/16 11:02 37 84 16 165/74 98 Room Air 09/25/16 10:33 36.7 80 16 146/78 98 Room Air 09/25/16 09:09 Room Air 09/25/16 07:58 98 Room Air 09/25/16 07:46 36.7 80 16 146/78 98 Room Air 09/25/16 07:09 70 16 92 Room Air Notes Mental Status: alert / awake / arousable, participated in evaluation Pt Amnestic to Procedure: Yes Nausea / Vomiting: adequately controlled Pain: adequately controlled Airway Patency, RR, SpO2: stable & adequate BP & HR: stable & adequate Hydration State: stable & adequate Anesthetic Complications: no major complications apparent
[2016-09-25] MEDS: ISOSORBIDE MONONITRATE 30 MG TABCR PO SCH (13:50)
[2016-09-25] MEDS: LOSARTAN POTASSIUM 50 MG TAB PO SCH (13:50)
[2016-09-25] MEDS: ASPIRIN 81 MG ECTAB PO SCH (13:50)
[2016-09-25] MEDS: METOPROLOL SUCC 50MG EXT REL TAB PO SCH (13:51)
[2016-09-25] MEDS: PANTOprazole SOD 40 MG TAB PO SCH (13:51)
[2016-09-25] MEDS: CHOLECALCIFEROL 1000 INTER.UNIT TAB PO SCH (13:51)
[2016-09-25] MEDS ORDERED: PANT40TA PO (14:37)
[2016-09-25] MEDS ORDERED: SUCR1TAB PO (14:37)
--- NOTE | 2016-09-25 14:38 | Discharge Instructions ---
Discharge Instructions Admission Reason for Admission: Intractable Abdominal Pain,Orthostatic Hypotension Discharge Discharge Diagnosis / Problem: dehydration, gastritis Discharge Goals Goal(s): Diagnostic testing, Therapeutic intervention Activity Recommendations Activity Limitations: resume your previous activity . Instructions / Follow-Up Instructions / Follow-Up Please resume your Coumadin as usual but have a blood check next saturday 09/30 Current Hospital Diet Patient's current hospital diet: Diabetes Type 2 Diet Discharge Diet Recommended Diet: Diabetes Type 2 Diet Pending Studies Studies pending at discharge: no Medical Emergencies . Who to Call and When: Medical Emergencies: If at any time you feel your situation is an emergency, please call 911 immediately. . Non-Emergent Contact Non-Emergency issues call your: Primary Care Provider . . "Provider Documentation" section prepared by Durga Burgos. VTE Core Measure Inpt VTE Proph given/why not?: Warfarin (Coumadin)
--- NOTE | 2016-09-25 14:43 | Discharge Summary ---
Discharge Summary Date of Service Sep 25, 2016. Discharge Summary Admission Date: Sep 22, 2016 at 17:59 Discharge Date: Sep 25, 2016 Discharge Disposition: Home Principal Diagnosis: AFIB, ABNORMAL ECG, GASTRITIS, ACTUE ON CHRONIC KIDNEY DISEASE 3 Problems/Secondary Diagnoses: (1) Atrial fibrillation Status: Chronic Medication Reconciliation New Medications: Sucralfate (Sucralfate) 1 Gm Tab 1 GM PO QID, #20 TAB Continued Medications: Aspirin (Aspirin Ec) 81 Mg Tab 81 MG PO DAILY Atorvastatin (Lipitor) 40 Mg Tab 40 MG PO HS, TAB Calcium Carbonate-Vitamin D (Caltrate 600+D 600-400 mg-Unit) 1 Chw Chw 1 TAB PO DAILY Cholecalciferol (Vitamin D3) 1,000 Inter.unit Tab 1000 INTERUNIT PO DAILY Cyanocobalamin (Vitamin B-12) 1,000 Mcg Sub 1000 MG SL DAILY Ferrous Sulfate (Kp Ferrous Sulfate) 325 Mg Tab 325 MG PO DAILY for 30 Days, #30 TAB Hydrocodone/Acetaminophen 5MG/325MG (Peterman 5MG/325MG) Tab 1-2 TABLETS PO QID PRN for SEVERE PAIN, TAB PRN PAIN Insulin Human NPH (Novolin N) 100 Units/Ml Susp 12 UNITS SQ QAM BS UNDER 100 TAKE 6 UNITS Insulin Human NPH (Novolin N) 100 Units/Ml Susp 4 UNITS SQ HS BS UNDER 80 = 0 UNITS (DON'T TAKE ANY) Isosorbide Mononitrate Ext Rel (Imdur Ext Rel) 30 Mg Tabcr 30 MG PO QAM, TAB Levothyroxine Sodium (Synthroid) 100 Mcg Tab 100 MCG PO DAILY, TAB Lorazepam (Ativan) 0.5 Mg Tab 0.5 MG PO DAILY PRN for Anxiety, TAB Losartan Potassium (Cozaar) 100 Mg Tab 100 MG PO DAILY, TAB Magnesium Oxide (Mag-Ox) 400 Mg Tab 400 MG PO QID, TAB Metoprolol Tartrate (Lopressor) (Lopressor) 50 Mg Tab 50 MG PO BID, TAB Nitroglycerin (Nitrostat) 0.4 Mg/1 Tab Subl 0.4 MG SL UD Pantoprazole (Protonix) 40 Mg Tab 40 MG PO BID, #60 TAB (This prescription has been renewed) Potassium Gluconate (Potassium Gluconate) 595 Mg Tab 1785 MG PO DAILY Triamcinolone Acet (Triamcinolone Acetonide) 45 Appln/15 Gm Cr 1 APPLN TOP BID PRN for AFFECTED SKIN Warfarin Sod (Jantoven) 5 Mg Tab 5 MG PO DAILY, TAB Discontinued Medications: Amlodipine (Norvasc) 10 Mg Tab 10 MG PO DAILY, TAB Cyclobenzaprine HCl (Cyclobenzaprine HCl) 10 Mg Tab 5 MG PO HS PRN for PRN Furosemide (Lasix) 40 Mg Tab 40 MG PO QAM, TAB Meclizine HCl (Meclizine HCl) 12.5 Mg Tab 12.5 MG PO TID for DIZZINESS Spironolactone (Aldactone) 25 Mg Tab 25 MG PO DAILY, TAB Trazodone Hcl (Trazodone) 50 Mg Tab 50 MG PO HS for Insomnia, TAB Discharge Exam Review of Systems: Constitutional: No chills, No fever Respiratory: No cough, No dyspnea on exertion, No shortness of breath, No sputum Cardiovascular: No chest pain, No edema Abdomen: No diarrhea, No nausea, No pain, No vomiting Genitourinary - Female: No dysuria, No urinary frequency Neurologic: No memory loss, No paralysis Physical Exam: General Appearance: WD/WN, no apparent distress Neck: supple, no JVD Respiratory/Chest: chest non-tender, lungs clear, normal breath sounds Cardiovascular: no murmur, + irregularly irregular Abdomen / GI: normal bowel sounds, non tender, soft Neurologic/Psychiatric: alert, oriented x 3 Hospital Course Atrial fibrillation with lateral EKG changes, abdominal pain, recent of and decreased po intake Afib/ Abnormal ECG negative serial enzymes, due to lower blood pressure hold amlodipine 10 mg by mouth daily, furosemide 40 mg by mouth every morning, and spironolactone 25 mg by mouth daily. Continue IMDUR extended release 30 mg by mouth every morning, losartan 100 mg by mouth daily, restart coumadin EGD 09/25 hhows no significant changes but symptoms sound like she had gastritis as was epigastric pain, limited eating and drinking and improved initially with maalox, since she was treated with carafate and protonix this may have helped mucosa heal prior to EGD --continue pantoprazole 40 mg by mouth twice a day. Carafate 1 g by mouth 4 times a day for 5 more days Diabetes Mellitus- Humulin N 12 units am and 4 units pm. plus ssi. ACUTE ON CHRONIC KIDNEY DISEASE STAGE 3 Hypothyroidism--continue levothyroxine sodium 100 g by mouth daily. Total Time Spent: Greater than 30 minutes This includes examination of the patient, discharge planning, medication reconciliation, and communication with other providers. Discharge Instructions Please refer to the electronic Patient Visit Report (Discharge Instructions) for additional information. Additional Copies To Himanshu Zambrano M.D.
[2016-09-25 15:05] VITALS: BP 160/81; PULSE 80; TEMP 36.8; O2SAT 97
[2016-09-25 15:08] VITALS: BP 160/81; PULSE 80; TEMP 36.8; O2SAT 97
== END 2016-09-25 15:30 | disposition home or self-care (01) | DRG 392 ==
LOC: ENRESERVTM → ENRESERVDT → C.EDB 13:29 → C.2T 17:59 → C.MS2W 09-23 19:58
PROVIDERS: ADMIT Hospitalist; ATTEND Internal Medicine
PROC: 0DJ08ZZ Inspection of Upper Intestinal Tract, Via Natural or Artificial Opening Endoscopic (ICD-10-PCS; principal; 2016-09-25 10:59)
DX: K29.70 Gastritis, unspecified, without bleeding (principal); I13.0 Hypertensive heart and chronic kidney disease with heart failure and stage 1 through stage 4 chronic kidney disease, or unspecified chronic kidney disease; I50.32 Chronic diastolic (congestive) heart failure; I48.2 Chronic atrial fibrillation; R94.31 Abnormal electrocardiogram [ECG] [EKG]; R19.7 Diarrhea, unspecified; R79.1 Abnormal coagulation profile; E86.0 Dehydration; N28.9 Disorder of kidney and ureter, unspecified; I95.1 Orthostatic hypotension; R63.4 Abnormal weight loss; E11.22 Type 2 diabetes mellitus with diabetic chronic kidney disease; N18.3 Chronic kidney disease, stage 3 (moderate); E11.43 Type 2 diabetes mellitus with diabetic autonomic (poly)neuropathy; K31.84 Gastroparesis; I08.1 Rheumatic disorders of both mitral and tricuspid valves; D63.8 Anemia in other chronic diseases classified elsewhere; M35.00 Sjogren syndrome, unspecified; E03.9 Hypothyroidism, unspecified; E78.00 Pure hypercholesterolemia, unspecified; E78.5 Hyperlipidemia, unspecified; K21.9 Gastro-esophageal reflux disease without esophagitis; K44.9 Diaphragmatic hernia without obstruction or gangrene; I77.810 Thoracic aortic ectasia; I25.10 Atherosclerotic heart disease of native coronary artery without angina pectoris; Z68.24 Body mass index [BMI] 24.0-24.9, adult; Z86.73 Personal history of transient ischemic attack (TIA), and cerebral infarction without residual deficits; Z82.49 Family history of ischemic heart disease and other diseases of the circulatory system; Z79.01 Long term (current) use of anticoagulants; Z79.4 Long term (current) use of insulin; Z79.82 Long term (current) use of aspirin; Z79.891 Long term (current) use of opiate analgesic; Z79.899 Other long term (current) drug therapy

== ENCOUNTER → 2016-09-30 | Outpatient (CLI) | payer OTHER ==
[~2016-09-30] MED LIST: ASPI81TA28 PO; ATOR-24 PO; CALC1CHW2 PO; CYAN100048 SL; FERR1TAB13 PO; HYDR-5688 PO; ISOS30TA35 PO; LEVO100T PO; LORA-741 PO; LOSA1TAB38 PO; MAGN400T6 PO; METO50TA16 PO; NTRGSL.4 SL; NVLNI SQ; PANT40TA PO; POTA1TAB PO; SUCR1TAB PO; TRMCR115 TOP; VTMD1000 PO; WARF5TAB7 PO
[2016-09-30 13:13] LABS: BASO % 0.4 %; BASO ABS # 0.02 K/uL (0-0.2); COMPLETE YES; EOS % 3.7 %; LYMPH % 14.2 %; LYMPH ABS # 0.66 K/uL (1.2-3.4); MEAN CORPUSCULAR HEMOGLOBIN 27.7 pg (25-34); MEAN CORPUSCULAR HGB CONC 32.2 g/dl (32-36); MEAN PLATELET VOLUME 10.2 fL (7.4-10.4); MONO % 15.7 %; PLATELET COUNT 282 K/uL (130-400); RED BLOOD COUNT 3.72 M/uL (4.2-5.4); WHITE BLOOD COUNT 4.65 K/uL (4.8-10.8)
[2016-09-30 13:56] LABS: ESTIMATED AVERAGE GLUCOSE 128 mg/dl; HA1C FLAG Normal (Normal)
[2016-09-30 14:01] LABS: ALB/GLOB RATIO 0.6 (0.9-2); ALT/SGPT 48 U/L (12-78); AST/SGOT 83 U/L (15-37); BLOOD UREA NITROGEN 23 mg/dl (7-18); BUN/CREATININE RATIO 19.1 (10-20); CALCIUM 8.9 mg/dl (8.5-10.1); CARBON DIOXIDE 27 mmol/L (21-32); CHLORIDE 103 mmol/L (98-107); GLUCOSE 102 mg/dl (70-99); MAGNESIUM 2.2 mg/dl (1.8-2.4); POTASSIUM 4.7 mmol/L (3.5-5.1); SODIUM 139 mmol/L (136-145)
[2016-09-30 14:07] LABS: ALKALINE PHOSPHATASE 450 U/L (45-117); CHOLESTEROL 82 mg/dl (0-200); CHOLESTEROL/HDL RATIO 2.7; HDL CHOLESTEROL 30 mg/dl; LDL CHOLESTEROL CALCULATED 30 mg/dl; TRIGLYCERIDES 111 mg/dl (0-150); VERY LOW DENSITY LIPOPROT CALC 22 mg/dl
== END | disposition home or self-care (01) ==
LOC: C.LABMFLN 11:35
PROVIDERS: ATTEND Family Medicine
DX: I48.91 Unspecified atrial fibrillation (principal); I10 Essential (primary) hypertension; K21.9 Gastro-esophageal reflux disease without esophagitis; E55.9 Vitamin D deficiency, unspecified; D63.8 Anemia in other chronic diseases classified elsewhere; E53.8 Deficiency of other specified B group vitamins; E11.65 Type 2 diabetes mellitus with hyperglycemia; E03.9 Hypothyroidism, unspecified; E83.42 Hypomagnesemia; I50.9 Heart failure, unspecified

== ENCOUNTER → 2016-10-07 | Outpatient (CLI) | payer OTHER ==
[~2016-10-07] MED LIST changes: -SUCR1TAB PO
[2016-10-07 13:30] LABS: POTASSIUM 4.4 mmol/L (3.5-5.1)
[2016-10-07 13:38] LABS: HEMATOCRIT 31.7 % (37-47)
== END | disposition home or self-care (01) ==
LOC: C.LABMFLN 12:09
PROVIDERS: ATTEND Family Medicine
DX: I48.91 Unspecified atrial fibrillation (principal); D50.9 Iron deficiency anemia, unspecified

== ENCOUNTER → 2016-11-18 | Outpatient (CLI) | payer OTHER ==
[~2016-11-18] MED LIST changes: +AMLO-114 PO; +CMD75 PO; +DENO60SO IM; +FAMO20TA11 PO; +FRS/40 PO; +METF1TAB53 PO; +METO-722 PO; +TRAZ50TA35 PO
[2016-11-18 15:00] LABS: BLOOD UREA NITROGEN 23 mg/dl (7-18); BUN/CREATININE RATIO 19.2 (10-20); CALCIUM 8.8 mg/dl (8.5-10.1); CARBON DIOXIDE 26 mmol/L (21-32); CHLORIDE 103 mmol/L (98-107); GLUCOSE 249 mg/dl (70-99); SODIUM 139 mmol/L (136-145)
== END | disposition home or self-care (01) ==
LOC: C.LABMFLN 11:17
PROVIDERS: ATTEND Family Medicine
DX: I25.10 Atherosclerotic heart disease of native coronary artery without angina pectoris (principal); I48.91 Unspecified atrial fibrillation

== ENCOUNTER → 2016-12-25 | Outpatient (CLI) | payer OTHER ==
[2016-12-25 13:14] LABS: BASO % 0.8 %; BASO ABS # 0.04 K/uL (0-0.2); COMPLETE YES; EOS % 2.7 %; HEMATOCRIT 37.7 % (37-47); IG% 0.2 %; LYMPH % 10.3 %; MEAN CELL VOLUME 84.2 fL (80-100); MEAN CORPUSCULAR HEMOGLOBIN 25.7 pg (25-34); MEAN CORPUSCULAR HGB CONC 30.5 g/dl (32-36); MEAN PLATELET VOLUME 10.4 fL (7.4-10.4); MONO % 11.7 %; NEUT % 74.3 %; PLATELET COUNT 259 K/uL (130-400); RED BLOOD COUNT 4.48 M/uL (4.2-5.4); WHITE BLOOD COUNT 4.86 K/uL (4.8-10.8)
[2016-12-25 14:23] LABS: ALT/SGPT 39 U/L (12-78); BLOOD UREA NITROGEN 20 mg/dl (7-18); BUN/CREATININE RATIO 16.3 (10-20); CARBON DIOXIDE 30 mmol/L (21-32); CHLORIDE 101 mmol/L (98-107); GLUCOSE 275 mg/dl (70-99); MAGNESIUM 1.8 mg/dl (1.8-2.4); POTASSIUM 3.8 mmol/L (3.5-5.1); SODIUM 139 mmol/L (136-145)
[2016-12-25 14:26] LABS: ALB/GLOB RATIO 0.5 (0.9-2); ALKALINE PHOSPHATASE 443 U/L (45-117); AST/SGOT 76 U/L (15-37)
[2016-12-25 14:32] LABS: CALCIUM 9.2 mg/dl (8.5-10.1)
[2016-12-26 05:57] LABS: ESTIMATED AVERAGE GLUCOSE 183 mg/dl; HA1C FLAG Normal (Normal)
== END | disposition home or self-care (01) ==
LOC: C.LABMFLN 10:20
PROVIDERS: ATTEND Family Medicine
DX: D63.8 Anemia in other chronic diseases classified elsewhere (principal); E11.65 Type 2 diabetes mellitus with hyperglycemia; I50.9 Heart failure, unspecified; I48.91 Unspecified atrial fibrillation

== ENCOUNTER → 2017-02-26 | Outpatient (CLI) | payer OTHER ==
[~2017-02-26] MED LIST changes: -AMLO-114 PO; -CMD75 PO; -DENO60SO IM; -FAMO20TA11 PO; -FRS/40 PO; -METF1TAB53 PO; -METO-722 PO; -TRAZ50TA35 PO
[2017-02-26 17:51] LABS: URINE APPEARANCE CLEAR (CLEAR); URINE BILIRUBIN NEG (NEG); URINE COLOR YELLOW; URINE NITRITE NEG (NEG); URINE SPECIFIC GRAVITY 1.017 (1.000-1.030); UROBILINOGEN NEG (NEG)
[2017-02-26 17:57] LABS: MANUAL MICROSCOPIC REQUIRED? NO; REVIEW REQ? NO
[2017-02-26 17:59] LABS: BLOOD UREA NITROGEN 17 mg/dl (7-18); GLUCOSE 78 mg/dl (70-99)
[2017-02-26 18:00] LABS: ALT/SGPT 76 U/L (12-78); AMYLASE 84 U/L (25-115); AST/SGOT 178 U/L (15-37); BASO % 0.5 %; BASO ABS # 0.02 K/uL (0-0.2); BUN/CREATININE RATIO 15.2 (10-20); CALCIUM 8.9 mg/dl (8.5-10.1); CARBON DIOXIDE 30 mmol/L (21-32); CHLORIDE 105 mmol/L (98-107); COMPLETE YES; EOS % 2.8 %; HEMATOCRIT 36.3 % (37-47); IG% 0.5 %; LYMPH ABS # 0.82 K/uL (1.2-3.4); MEAN CELL VOLUME 85.8 fL (80-100); MEAN CORPUSCULAR HGB CONC 31.4 g/dl (32-36); MEAN PLATELET VOLUME 10.3 fL (7.4-10.4); MONO % 16.2 %; PLATELET COUNT 230 K/uL (130-400); POTASSIUM 3.9 mmol/L (3.5-5.1); RED BLOOD COUNT 4.23 M/uL (4.2-5.4); SODIUM 139 mmol/L (136-145)
[2017-02-26 18:02] LABS: ALKALINE PHOSPHATASE 616 U/L (45-117)
[2017-02-26 18:09] LABS: INR 1.9 (0.9-1.1); PROTHROMBIN TIME (PATIENT) 20.5 SECONDS (9.0-12.0)
== END | disposition home or self-care (01) ==
LOC: C.LABMFLN 12:19
PROVIDERS: ATTEND Family Medicine
DX: I48.91 Unspecified atrial fibrillation (principal); R10.814 Left lower quadrant abdominal tenderness; R19.7 Diarrhea, unspecified; R10.12 Left upper quadrant pain

== ENCOUNTER → 2017-02-27 | Outpatient (CLI) | payer OTHER | END | disposition home or self-care (01) | LOC: C.LABSPEC 13:34 | PROVIDERS: ATTEND Family Medicine | DX: I48.91 Unspecified atrial fibrillation (principal); R10.814 Left lower quadrant abdominal tenderness; R19.7 Diarrhea, unspecified; R10.12 Left upper quadrant pain ==

== ENCOUNTER → 2017-02-27 | Outpatient (CLI) | payer OTHER ==
[2017-03-03 20:26] LABS: O&P GIARDIA AG NOT DETECTED (NOT DETECTED)
== END | disposition home or self-care (01) ==
LOC: C.LABMFLN 09:27
PROVIDERS: ATTEND Family Medicine
DX: I48.91 Unspecified atrial fibrillation (principal); R10.814 Left lower quadrant abdominal tenderness; R19.7 Diarrhea, unspecified; R10.12 Left upper quadrant pain

== ENCOUNTER → 2017-03-04 | Outpatient (CLI) | payer OTHER ==
--- NOTE | 2017-03-04 10:36 | DIAGNOSTIC IMAGING REPORT ---
ABDOMEN COMPLETE (US) HISTORY: Ultrasound R10.814 Abdominal left lower quadrant [id number] Abdominal. COMPARISON: None. FINDINGS: Pancreas: The pancreas demonstrates a normal echotexture. Liver: Heterogeneous with potential early cirrhotic change Gallbladder: Surgically removed CBD: 11 mm possibly a postoperative basis Kidneys: No hydronephrosis. Spleen: Normal in size. Aorta: Mild left ischemic change. No evidence for aneurysm IVC: Patent. IMPRESSION: Early cirrhotic change of the liver. Prior cholecystectomy. Prominence of the biliary ductal system most likely postoperative The above report was generated using voice recognition software. It may contain grammatical, syntax or spelling errors. Electronically signed by: Adam Srivastava M.D. 03/04/2017 10:35 AM Dictated Date/Time: 03/04/2017 10:33 AM
== END | disposition home or self-care (01) ==
LOC: C.ULTR 09:55
PROVIDERS: ATTEND Family Medicine
DX: R10.814 Left lower quadrant abdominal tenderness (principal); R10.12 Left upper quadrant pain; R74.0 Nonspecific elevation of levels of transaminase and lactic acid dehydrogenase [LDH]; Z90.49 Acquired absence of other specified parts of digestive tract

== ENCOUNTER → 2017-03-12 | Outpatient (CLI) | payer OTHER ==
[2017-03-12 18:08] LABS: HEMATOCRIT 38.4 % (37-47)
[2017-03-12 18:26] LABS: INR 3.2 (0.9-1.1); PROTHROMBIN TIME (PATIENT) 35.8 SECONDS (9.0-12.0)
[2017-03-17 11:32] LABS: ANA TITER > OR = 1:1280 TITER (<1:40)
== END | disposition home or self-care (01) ==
LOC: C.LABMFLN 11:59
PROVIDERS: ATTEND Family Medicine
DX: I48.91 Unspecified atrial fibrillation (principal); K21.9 Gastro-esophageal reflux disease without esophagitis; R74.0 Nonspecific elevation of levels of transaminase and lactic acid dehydrogenase [LDH]; R19.7 Diarrhea, unspecified; R10.814 Left lower quadrant abdominal tenderness; R10.12 Left upper quadrant pain

== ENCOUNTER → 2017-03-19 | Outpatient (CLI) | payer OTHER ==
[2017-03-20 15:52] LABS: ALBUMIN 3.6 G/DL (3.8-4.8); GAMMA GLOBULIN 2.4 G/DL (0.8-1.7); TOTAL PROTEIN 8.3 G/DL (6.2-8.3)
[2017-03-21 11:28] LABS: ALBUMIN % 66.94 %; ALPHA-2-GLOBULIN % 7.85 %; BETA GLOBULIN % 12.09 %; CREATININE UR 118 MG/DL (20-320); GAMMA GLOBULIN % 6.57 %
[2017-03-21 18:43] LABS: IGA SERUM 373 mg/dL (81-463); TIS TRANS IGA 1 U/mL (<4)
== END | disposition home or self-care (01) ==
LOC: C.LABMFLN 10:02
PROVIDERS: ATTEND Family Medicine
DX: R74.0 Nonspecific elevation of levels of transaminase and lactic acid dehydrogenase [LDH] (principal); E88.09 Other disorders of plasma-protein metabolism, not elsewhere classified; R10.814 Left lower quadrant abdominal tenderness; R10.12 Left upper quadrant pain

== ENCOUNTER → 2017-04-15 | Outpatient (CLI) | payer OTHER ==
[2017-04-15 13:13] LABS: BASO % 0.8 %; BASO ABS # 0.03 K/uL (0-0.2); COMPLETE YES; EOS % 3.4 %; HEMATOCRIT 35.6 % (37-47); IG% 0.5 %; LYMPH % 21.2 %; LYMPH ABS # 0.82 K/uL (1.2-3.4); MEAN CORPUSCULAR HEMOGLOBIN 28.8 pg (25-34); MEAN CORPUSCULAR HGB CONC 34.3 g/dl (32-36); MONO % 14.7 %; NEUT % 59.4 %; PLATELET COUNT 214 K/uL (130-400); RED BLOOD COUNT 4.24 M/uL (4.2-5.4); WHITE BLOOD COUNT 3.87 K/uL (4.8-10.8)
[2017-04-15 13:28] LABS: ESTIMATED AVERAGE GLUCOSE 157 mg/dl; HA1C FLAG Normal (Normal)
[2017-04-15 14:02] LABS: ALT/SGPT 23 U/L (12-78); BLOOD UREA NITROGEN 16 mg/dl (7-18); BUN/CREATININE RATIO 17.4 (10-20); CALCIUM 9.1 mg/dl (8.5-10.1); CARBON DIOXIDE 27 mmol/L (21-32); CHLORIDE 100 mmol/L (98-107); CHOLESTEROL 158 mg/dl (0-200); CREATININE 0.89 mg/dl (0.60-1.20); GLUCOSE 156 mg/dl (70-99); POTASSIUM 4.1 mmol/L (3.5-5.1); SODIUM 132 mmol/L (136-145); TRIGLYCERIDES 155 mg/dl (0-150); VERY LOW DENSITY LIPOPROT CALC 31 mg/dl
[2017-04-15 14:12] LABS: ALB/GLOB RATIO 0.6 (0.9-2); ALKALINE PHOSPHATASE 174 U/L (45-117); AST/SGOT 35 U/L (15-37); CHOLESTEROL/HDL RATIO 3.2; HDL CHOLESTEROL 49 mg/dl; LDL CHOLESTEROL CALCULATED 78 mg/dl; TOTAL IRON BINDING CAPACITY 381 mcg/dl (250-450)
== END | disposition home or self-care (01) ==
LOC: C.LABMFLN 09:45
PROVIDERS: ATTEND Family Medicine
DX: R74.0 Nonspecific elevation of levels of transaminase and lactic acid dehydrogenase [LDH] (principal); E78.5 Hyperlipidemia, unspecified; E55.9 Vitamin D deficiency, unspecified; E03.9 Hypothyroidism, unspecified; E53.8 Deficiency of other specified B group vitamins; E11.65 Type 2 diabetes mellitus with hyperglycemia; I50.9 Heart failure, unspecified; D63.8 Anemia in other chronic diseases classified elsewhere

== ENCOUNTER → 2017-04-23 | Outpatient (CLI) | payer OTHER ==
[2017-04-23 13:34] LABS: BLOOD UREA NITROGEN 16 mg/dl (7-18); BUN/CREATININE RATIO 15.8 (10-20); CALCIUM 8.9 mg/dl (8.5-10.1); CARBON DIOXIDE 27 mmol/L (21-32); CHLORIDE 101 mmol/L (98-107); GLUCOSE 113 mg/dl (70-99); MAGNESIUM 1.9 mg/dl (1.8-2.4); POTASSIUM 4.1 mmol/L (3.5-5.1); SODIUM 133 mmol/L (136-145)
== END | disposition home or self-care (01) ==
LOC: C.LABMFLN 09:32
PROVIDERS: ATTEND Family Medicine
DX: I50.9 Heart failure, unspecified (principal)

== ENCOUNTER → 2017-06-23 | Day surgery (SDC) | payer OTHER ==
[2017-06-11 14:42] VITALS: Ht 153.7 cm; Wt 70.0 kg
[~2017-06-23] VITALS: Ht 153.7 cm; Wt 70.0 kg
[~2017-06-23] MED LIST changes: +500ML BSS 0.3ML EPI 1:1000PF IRRIG ONE; +ACETAMINOPHEN 325 MG TAB PO PRN; +AMLO-114 PO; +AMVISC PLUS 0.8ML SYRINGE INT OCU ONE; -ATOR-24 PO; +ATROPINE SULFATE 0.1 MG/ML 5ML SYR IV PRN; +BRIMONIDINE TART 0.2% OP SOLN PER DROP CHARGE ONE; +BSS FLUSH ONE; +CMD75 PO; +DENO60SO IM; +ENDOCOAT 0.85ML SYRINGE INT OCU ONE; +EpHEDrine SULFATE 50MG/5ML SYR ONE; +EpHEDrine SULFATE INJ 50 MG/ML AMP IV PRN; +EpINEphrine INJ 1MG/ML AMP 1 MG/ML AMP ONE; +FAMO20TA11 PO; -FERR1TAB13 PO; +FRS/40 PO; +LACTATED RINGER'S 1000ML 500 ML IV SCH; +LIDOCAINE 4% OP SOLN DROP CHARGE ONE; +LIDOCAINE 4% OP SOLN DROP CHARGE OPR SCH; +LIDOCAINE HCL 1% MPF 2 ML VIAL ONE; +LIDOCAINE HCL 2% 2 ML VIAL (20MG/ML) ONE; +METF1TAB53 PO; +METO-722 PO; -METO50TA16 PO; +MIX: 3ML BSS AND 1ML EPI(PF) TOP ONE; +MOXIFLOXACIN OPH SOLN PER DROP CHARGE ONE; -POTA1TAB PO; +POVIDONE-IODINE OP SOLN 30 ML BTL ONE; +PROPARACAINE 0.5% OP SOLN PER DROP CHARGE OPR SCH; +PROPOFOL IV EMULSION 10 MG/ML 20 ML VIAL IV ONE; +TOBRAMYCIN/DEXAMETHASONE OPH OINT PER APPLN CHARGE ONE; +TRAZ50TA35 PO; -WARF5TAB7 PO
[2017-06-23] MEDS: PHENYLEPHRINE HCL 2.5% OP SOLN PER DROP CHARGE OPR SCH ×2 (08:11→08:34)
[2017-06-23] MEDS: TROPICAMIDE 1% OP SOLN PER DROP CHARGE OPR SCH ×2 (08:12→08:36)
[2017-06-23] MEDS: CYCLOPENTOLATE HCL 1% OP SOLN PER DROP CHARGE OPR SCH ×2 (08:13→08:37)
[2017-06-23] MEDS: KETOROLAC 0.5% OP SOLN PER DROP CHARGE OPR SCH ×2 (08:14→08:38)
[2017-06-23] MEDS: MOXIFLOXACIN OPH SOLN PER DROP CHARGE OPR SCH ×2 (08:19→08:40)
--- NOTE | 2017-06-23 08:20 | History & Physical Bridge - SC ---
H&P Re-Evaluation Bridge Note: I have examined the patient, reviewed the History & Physical and in the interval since the performance of the History & Physical I have noted the following changes of clinical significance: No changes noted
[2017-06-23 09:16] VITALS: TEMP 36.6
--- NOTE | 2017-06-23 09:17 | Discharge Instructions-SurgCtr ---
Discharge Instructions Date of Service Jun 23, 2017. Visit Reason for Visit: Cataract Right Eye Discharge Discharge Diagnosis / Problem: cataract right eye Discharge Goals Goal(s): Improve function Medications Stopped Medications Name(s): held metformin for 48 hrs Activity Recommendations Activity Limitations: per Instructions/Follow-up section Lifting Limitations: no more than 5 pounds Anesthesia . Post Anesthesia Instructions: If you have had General Anesthesia or IV Sedation: * Do not drive today. * Resume driving when surgeon permits. * Do not make important decisions or sign legal documents today. * Call surgeon for: 1. Temperature elevations greater than 101 degrees F. 2. Uncontrollable pain. 3. Excessive bleeding. 4. Persistent nausea and vomiting. 5. Medication intolerance (nausea, vomiting or rash). * For nausea and vomiting use only clear liquids such as: tea, soda, bouillon until nausea subsides, then gradually increase diet as tolerated. * If you have any concerns or questions, call your surgeon's office. If physician is unavailable and it is an emergency, call 911 or go to the nearest emergency room. . Instructions / Follow-Up Instructions / Follow-Up ACTIVITY RECOMMENDATIONS: * Light activities * You may walk outside, read, watch television. * Mild irritation and blurred vision are common for the first few days, redness around the white part of the eye is common. MEDICATIONS: Resume previous medications unless instructed otherwise by your surgeon. Eye drops (today and tomorrow): Polytrim - one drop in operative eye every 2 hours while awake Prednisolone 1% - one drop in operative eye every 2 hours while awake Prolensa - one drop operative eye 1 times daily SPECIAL CARE INSTRUCTIONS: * If any problems or concerns, please call Dr. Bojorquez's office at . * Keep plastic shield taped over eye to sleep at night. * Keep plastic shield taped over eye except to administer eye drops. * Keep plastic shield on until office visit the following day. FOLLOW UP VISIT: Follow-up with Dr. Bojorquez in the [place] office as scheduled. If not already scheduled, please call the office at . Diet Recommendations Home Diet: resume previous diet Procedures Procedures Performed: Right Cataract Phacoemulsification With Intraocular Lens Implant Pending Studies Studies pending at discharge: no Medical Emergencies . Who to Call and When: Medical Emergencies: If at any time you feel your situation is an emergency, please call 911 immediately. . Non-Emergent Contact Non-Emergency issues call your: Chemical Engineering Teacher . . "Provider Documentation" section prepared by Freddy Bojorquez. .
--- NOTE | 2017-06-23 09:20 | [facility] Operative Report ---
Operative Report Operative Date Jun 23, 2017. 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 Gentle IV sedation was given, and the patient's right eye was prepped and draped in usual sterile fashion. A wire lid speculum was placed into the right eye and the operating microscope was swung into position. Using 0.12 forceps and a Supersharp blade a paracentesis port was made 2 o'clock hours away from the 9 o'clock position of the patient's right eye. 1% non-preserved Lidocaine was then injected into the anterior chamber for anesthesia. A 2.0 mm keratotome blade was then used to make a shelved clear corneal incision at the 9 o'clock position of the right eye. Amvisc was injected into the anterior chamber and a cystotome and Utrata forceps were used to perform a curvilinear capsulorrhexis. BSS on a hydrodissection cannula was used to hydrodissect the lens nucleus away from the capsular bag. The phacoemulsification handpiece was then used in a stop and chop fashion to remove the lens nucleus. The irrigation and aspiration handpiece was then used to remove the residual cortical material. Amvisc was injected into the capsular bag and anterior chamber and a IRWIN [id number] 23.5 Diopter intraocular lens was injected into the capsular bag. Irrigation and aspiration handpiece was used to remove the residual viscoelastic material. The lens was aligned with preop corneal markings on the 8 degree axis. The wounds were hydrated and noted to be watertight. The wire lid speculum was removed from the eye. Vigamox, Brimonidine, and TobraDex ointment were placed on the eye and it was shielded. It should be noted that EndoCoat was used extensively during the case to protect the cornea endothelium. DISPOSITION: The patient tolerated the procedure well and was wheeled to the post anesthesia care unit in stable condition. I attest to the content of the Intraoperative Record and any orders documented therein. Any exceptions are noted below. I attest to the content of the Intraoperative Record and any orders documented therein. Any exceptions are noted below.
[2017-06-23 09:39] VITALS: BP 115/64; PULSE 65; O2SAT 96
--- NOTE | 2017-06-23 09:43 | Anesthesia Progress Nt - [facility] ---
Anesthesia Post Op Note Date & Time Jun 23, 2017 at 09:43 Vital Signs Pain Intensity: 0 Vital Signs Past 12 Hours Date Time Temp Pulse Resp B/P (MAP) Pulse Ox O2 Delivery O2 Flow Rate FiO2 06/23/17 09:39 65 16 115/64 (81) 96 Room Air 06/23/17 09:16 36.6 68 20 115/59 (77) 95 Room Air 06/23/17 07:57 36.6 77 16 147/81 (103) 96 Room Air Notes Mental Status: alert / awake / arousable, participated in evaluation Pt Amnestic to Procedure: Yes Nausea / Vomiting: adequately controlled Pain: adequately controlled Airway Patency, RR, SpO2: stable & adequate BP & HR: stable & adequate Hydration State: stable & adequate Anesthetic Complications: no major complications apparent
== END | disposition home or self-care (01) ==
LOC: X.SURG 07:44
PROVIDERS: ATTEND Ophthalmology
DX: H25.11 Age-related nuclear cataract, right eye (principal); H52.201 Unspecified astigmatism, right eye; E11.9 Type 2 diabetes mellitus without complications; I10 Essential (primary) hypertension; E07.9 Disorder of thyroid, unspecified

== ENCOUNTER → 2017-07-07 | Day surgery (SDC) | payer OTHER ==
[2017-07-03 11:50] VITALS: Ht 152.4 cm; Wt 70.5 kg
[~2017-07-07] VITALS: Ht 152.4 cm; Wt 70.5 kg
[~2017-07-07] MED LIST changes: +BRIMONIDINE TARTRATE 0.2% 5ML ONE; -EpHEDrine SULFATE 50MG/5ML SYR ONE; +LIDOCAINE 4% OP SOLN DROP CHARGE OPL SCH; -LIDOCAINE 4% OP SOLN DROP CHARGE OPR SCH; -LIDOCAINE HCL 2% 2 ML VIAL (20MG/ML) ONE; +MIDAZOLAM HCL 1 MG/ML 2ML VIAL ONE; -MIX: 3ML BSS AND 1ML EPI(PF) TOP ONE; +PROPARACAINE 0.5% OP SOLN PER DROP CHARGE OPL SCH; -PROPARACAINE 0.5% OP SOLN PER DROP CHARGE OPR SCH; -PROPOFOL IV EMULSION 10 MG/ML 20 ML VIAL IV ONE; +VISCOAT 0.5ML SYRINGE INT OCU ONE
[2017-07-07] MEDS: PHENYLEPHRINE HCL 2.5% OP SOLN PER DROP CHARGE OPL SCH ×2 (06:36→06:42)
[2017-07-07] MEDS: TROPICAMIDE 1% OP SOLN PER DROP CHARGE OPL SCH ×2 (06:37→06:42)
[2017-07-07] MEDS: CYCLOPENTOLATE HCL 1% OP SOLN PER DROP CHARGE OPL SCH ×2 (06:38→06:43)
[2017-07-07] MEDS: KETOROLAC 0.5% OP SOLN PER DROP CHARGE OPL SCH ×2 (06:39→06:44)
[2017-07-07] MEDS: MOXIFLOXACIN OPH SOLN PER DROP CHARGE OPL SCH ×2 (06:40→06:48)
--- NOTE | 2017-07-07 07:33 | Discharge Instructions-[facility]urgCtr ---
Discharge Instructions Date of Service Jul 07, 2017. Visit Reason for Visit: Left Cataract Discharge Discharge Diagnosis / Problem: cataract left eye Discharge Goals Goal(s): Improve function Medications Stopped Medications Name(s): stopped metformin on Friday Activity Recommendations Activity Limitations: per Instructions/Follow-up section Lifting Limitations: no more than 5 pounds Anesthesia . Post Anesthesia Instructions: If you have had General Anesthesia or IV Sedation: * Do not drive today. * Resume driving when surgeon permits. * Do not make important decisions or sign legal documents today. * Call surgeon for: 1. Temperature elevations greater than 101 degrees F. 2. Uncontrollable pain. 3. Excessive bleeding. 4. Persistent nausea and vomiting. 5. Medication intolerance (nausea, vomiting or rash). * For nausea and vomiting use only clear liquids such as: tea, soda, bouillon until nausea subsides, then gradually increase diet as tolerated. * If you have any concerns or questions, call your surgeon's office. If physician is unavailable and it is an emergency, call 911 or go to the nearest emergency room. . Instructions / Follow-Up Instructions / Follow-Up ACTIVITY RECOMMENDATIONS: * Light activities * You may walk outside, read, watch television. * Mild irritation and blurred vision are common for the first few days, redness around the white part of the eye is common. MEDICATIONS: Resume previous medications unless instructed otherwise by your surgeon. Eye drops (today and tomorrow): Polytrim - one drop in operative eye every 2 hours while awake Prednisolone 1% - one drop in operative eye every 2 hours while awake Prolensa (Bromfenac) - one drop in operative eye once daily SPECIAL CARE INSTRUCTIONS: * If any problems or concerns, please call Dr. Bojorquez's office at . * Keep plastic shield taped over eye to sleep at night. * Keep plastic shield taped over eye except to administer eye drops. * Keep plastic shield on until office visit the following day. FOLLOW UP VISIT: Follow-up with Dr. Bojorquez in the [place] office as scheduled. If not already scheduled, please call the office at . Diet Recommendations Home Diet: resume previous diet Procedures Procedures Performed: Right Eye Cataract Phacoemulsification With Intraocular Lens Implant Pending Studies Studies pending at discharge: no Medical Emergencies . Who to Call and When: Medical Emergencies: If at any time you feel your situation is an emergency, please call 911 immediately. . Non-Emergent Contact Non-Emergency issues call your: Sql Programmer . . "Provider Documentation" section prepared by Freddy Bojorquez. .
[2017-07-07 07:35] VITALS: TEMP 36.8
--- NOTE | 2017-07-07 07:35 | [facility] Operative Report ---
Operative Report Operative Date Jul 07, 2017. Pre-Operative Diagnosis Left Eye Cataract Phacoemulsification With Intraocular Lens Implant Post-Operative Diagnosis Same Procedure(s) Performed Left Eye Cataract Phacoemulsification With Intraocular Lens Implant Surgeon Dr. Bojorquez Category Director Surgeon(s) None Estimated Blood Loss None Findings cataract left eye Specimens None Drains none Anesthesia local with sedation Complication(s) None Disposition Recovery Room / PACU Implants [id number] 21.5 Indications decreased vision left eye Description of Procedure After informed consent was obtained in the holding area the patient was wheeled back to the operating room where cardiac monitoring leads and oxygen by nasal cannula was administered by Anesthesia. Gentle IV sedation was given, and the patient's left eye was prepped and draped in usual sterile fashion. A wire lid speculum was placed into the left eye and the operating microscope was swung into position. Using 0.12 forceps and a Supersharp blade a paracentesis port was made 2 o'clock hours away from the 3 o'clock position of the patient's left eye. 1% non-preserved Lidocaine was then injected into the anterior chamber for anesthesia. A 2.0 mm keratotome blade was then used to make a shelved clear corneal incision at the 3 o'clock position of the left eye. Amvisc was injected into the anterior chamber and a cystotome and Utrata forceps were used to perform a curvilinear capsulorrhexis. BSS on a hydrodissection cannula was used to hydrodissect the lens nucleus away from the capsular bag. The phacoemulsification handpiece was then used in a stop and chop fashion to remove the lens nucleus. The irrigation and aspiration handpiece was then used to remove the residual cortical material. Amvisc was injected into the capsular bag and anterior chamber and a [employer] MX60 21.5 Diopter intraocular lens was injected into the capsular bag. Irrigation and aspiration handpiece was used to remove the residual viscoelastic material. The wounds were hydrated and noted to be watertight. The wire lid speculum was removed from the eye. Vigamox, Brimonidine, and TobraDex ointment were placed on the eye and it was shielded. It should be noted that EndoCoat was used extensively during the case to protect the cornea endothelium. DISPOSITION: The patient tolerated the procedure well and was wheeled to the post anesthesia care unit in stable condition. I attest to the content of the Intraoperative Record and any orders documented therein. Any exceptions are noted below. I attest to the content of the Intraoperative Record and any orders documented therein. Any exceptions are noted below.
[2017-07-07 07:55] VITALS: BP 125/65; PULSE 62; O2SAT 95
--- NOTE | 2017-07-07 08:05 | Anesthesia Progress Nt - [facility] ---
Anesthesia Post Op Note Date & Time Jul 07, 2017 at 08:05 Vital Signs Pain Intensity: 0 Vital Signs Past 12 Hours Date Time Temp Pulse Resp B/P (MAP) Pulse Ox O2 Delivery O2 Flow Rate FiO2 07/07/17 07:55 62 16 125/65 (85) 95 Room Air 07/07/17 07:35 36.8 65 16 129/61 (83) 95 Room Air 07/07/17 06:28 36.6 57 20 141/89 (106) 95 Room Air Notes Mental Status: alert / awake / arousable, participated in evaluation Pt Amnestic to Procedure: Yes Nausea / Vomiting: adequately controlled Pain: adequately controlled Airway Patency, RR, SpO2: stable & adequate BP & HR: stable & adequate Hydration State: stable & adequate Anesthetic Complications: no major complications apparent
== END | disposition home or self-care (01) ==
LOC: X.SURG 06:02
PROVIDERS: ATTEND Ophthalmology
DX: H25.12 Age-related nuclear cataract, left eye (principal); E11.9 Type 2 diabetes mellitus without complications; I10 Essential (primary) hypertension; E07.9 Disorder of thyroid, unspecified; Z96.1 Presence of intraocular lens

== ENCOUNTER → 2017-08-06 | Outpatient (CLI) | payer OTHER ==
[~2017-08-06] MED LIST changes: -500ML BSS 0.3ML EPI 1:1000PF IRRIG ONE; -ACETAMINOPHEN 325 MG TAB PO PRN; -AMLO-114 PO; +AMLO10TA3 PO; -AMVISC PLUS 0.8ML SYRINGE INT OCU ONE; -ATROPINE SULFATE 0.1 MG/ML 5ML SYR IV PRN; -BRIMONIDINE TART 0.2% OP SOLN PER DROP CHARGE ONE; -BRIMONIDINE TARTRATE 0.2% 5ML ONE; -BSS FLUSH ONE; -ENDOCOAT 0.85ML SYRINGE INT OCU ONE; -EpHEDrine SULFATE INJ 50 MG/ML AMP IV PRN; -EpINEphrine INJ 1MG/ML AMP 1 MG/ML AMP ONE; -LACTATED RINGER'S 1000ML 500 ML IV SCH; -LIDOCAINE 4% OP SOLN DROP CHARGE ONE; -LIDOCAINE 4% OP SOLN DROP CHARGE OPL SCH; -LIDOCAINE HCL 1% MPF 2 ML VIAL ONE; -MIDAZOLAM HCL 1 MG/ML 2ML VIAL ONE; -MOXIFLOXACIN OPH SOLN PER DROP CHARGE ONE; -POVIDONE-IODINE OP SOLN 30 ML BTL ONE; -PROPARACAINE 0.5% OP SOLN PER DROP CHARGE OPL SCH; -TOBRAMYCIN/DEXAMETHASONE OPH OINT PER APPLN CHARGE ONE; -VISCOAT 0.5ML SYRINGE INT OCU ONE
[2017-08-06 12:35] LABS: BASO % 0.4 %; BASO ABS # 0.02 K/uL (0-0.2); EOS ABS # 0.14 K/uL (0-0.5); HEMATOCRIT 32.2 % (37-47); HEMOGLOBIN 10.4 g/dL (12.0-16.0); IG# 0.01 K/uL (0.00-0.02); LYMPH % 18.9 %; LYMPH ABS # 0.89 K/uL (1.2-3.4); MEAN CORPUSCULAR HEMOGLOBIN 28.4 pg (25-34); MEAN CORPUSCULAR HGB CONC 32.3 g/dl (32-36); MEAN PLATELET VOLUME 9.9 fL (7.4-10.4); MONO % 15.5 %; MONO ABS # 0.73 K/uL (0.11-0.59); NEUT ABS # 2.93 K/uL (1.4-6.5); PLATELET COUNT 213 K/uL (130-400); RED CELL DISTRIBUTION WIDTH CV 15.6 % (11.5-14.5); RED CELL DISTRIBUTION WIDTH SD 50.7 fL (36.4-46.3); WHITE BLOOD COUNT 4.72 K/uL (4.8-10.8)
[2017-08-06 13:01] LABS: HEMOGLOBIN A1C 6.9 % (4.5-5.6)
[2017-08-06 14:22] LABS: ALBUMIN 3.4 gm/dl (3.4-5.0); ALKALINE PHOSPHATASE 83 U/L (45-117); ALT/SGPT 22 U/L (12-78); AST/SGOT 26 U/L (15-37); BLOOD UREA NITROGEN 19 mg/dl (7-18); CALCIUM 8.1 mg/dl (8.5-10.1); CARBON DIOXIDE 29 mmol/L (21-32); CREATININE 1.21 mg/dl (0.60-1.20); GLUCOSE 81 mg/dl (70-99); SODIUM 136 mmol/L (136-145); TOTAL PROTEIN 8.9 gm/dl (6.4-8.2)
[2017-08-06 14:33] LABS: CHOLESTEROL 137 mg/dl (0-200); LDL CHOLESTEROL CALCULATED 64 mg/dl
--- NOTE | 2017-08-15 10:33 | CODING QUERY MEDICAL NECESSITY ---
CQSUPPORTING DIAGNOSIS NEEDED A supporting diagnosis is required for the test/procedure performed on this patient in order for us to be reimbursed by the patient's insurance. Please provide a supporting diagnosis for the following test/procedure listed below next to the test name along with your signature. *If there is no additional diagnosis for this patient that would support the following test/procedure please document that below next to the test/procedure. Test(s)/Procedure(s) that require a supporting diagnosis: DOS 08/06/17 GLYCATED HEMOGLOBIN TEST Provider Signature: Date: Thank you Patrizia Shelby Health Information Management Once completed, please kindly fax back to [phone] For questions please call [phone]
== END | disposition home or self-care (01) ==
LOC: C.LABMFLN 09:30
PROVIDERS: ATTEND Family Medicine
DX: D50.9 Iron deficiency anemia, unspecified (principal); I10 Essential (primary) hypertension; E78.5 Hyperlipidemia, unspecified; E03.9 Hypothyroidism, unspecified; E83.42 Hypomagnesemia; I25.10 Atherosclerotic heart disease of native coronary artery without angina pectoris; I48.91 Unspecified atrial fibrillation; E11.9 Type 2 diabetes mellitus without complications

== ENCOUNTER → 2017-08-21 | Outpatient (CLI) | payer OTHER ==
[2017-08-21 18:06] LABS: HEMATOCRIT 33.4 % (37-47); HEMOGLOBIN 11.2 g/dL (12.0-16.0)
[2017-08-21 18:14] LABS: AMYLASE 94 U/L (25-115); EstGFR CKD-E AfrAm 51.5; EstGFR CKD-E NON AfrAm 44.4; IRON (FE) 112 mcg/dl (35-150); LIPASE 146 U/L (73-393)
[2017-08-21 18:14] LABS: CREATININE 1.16 mg/dl (0.60-1.20)
[2017-08-21 18:15] LABS: % TRANSFERRIN SATURATION 27 % (15-50); TOTAL IRON BINDING CAPACITY 381 mcg/dl (250-450); TRANSFERRIN 300 mg/dl (200-360)
[2017-08-21 18:22] LABS: VITAMIN B12** 1798 pg/mL (211-911)
[2017-08-21 19:17] LABS: FOLATE** > 24.00 ng/mL (>5.38)
== END | disposition home or self-care (01) ==
LOC: C.LABMFLN 13:38
DX: D50.9 Iron deficiency anemia, unspecified (principal); I10 Essential (primary) hypertension; D63.8 Anemia in other chronic diseases classified elsewhere; G45.9 Transient cerebral ischemic attack, unspecified; R10.11 Right upper quadrant pain

== ENCOUNTER → 2017-08-27 | Outpatient (CLI) | payer OTHER ==
[~2017-08-27] MED LIST changes: +AMLO-114 PO; -AMLO10TA3 PO; +OPTIRAY 320 IV PRN
--- NOTE | 2017-08-27 14:21 | DIAGNOSTIC IMAGING REPORT ---
ABDOMEN AND PELVIS CT WITH IV AND ORAL CONTRAST CT DOSE: 689.16 mGycm HISTORY: R10.11 Chronic bilateral upper abdominal pain TECHNIQUE: Multiaxial CT images of the abdomen and pelvis were performed following the use of intravenous and oral contrast. A dose lowering technique was utilized adhering to the principles of ALARA. COMPARISON STUDY: Abdomen and pelvis CT 09/22/2016. FINDINGS: Focal area of linear and groundglass densities within the right lower lobe medially. No pneumoperitoneum. No pneumatosis. The heart remains mildly enlarged. Small hiatus hernia, unchanged. No acute fractures within the visualized osseous structures. Cholecystectomy. Mild intrahepatic bile duct dilatation, unchanged. Slightly nodular contour to the liver consistent with cirrhosis. No hepatic or splenic masses. The pancreas and right adrenal gland are within normal limits. Mild nodular thickening within the left adrenal gland, unchanged. A few subcentimeter bilateral renal hypodense lesions. These are too small to characterize but favor cysts. No hydronephrosis. No retroperitoneal lymphadenopathy. Moderate ossified plaque within the normal caliber abdominal aorta. The bladder is unremarkable. The uterus is surgically absent. Stable pelvic lymph nodes. Prior rectosigmoid anastomosis. A few colonic diverticula. No bowel wall thickening or obstruction. Moderate stool within the colon. Stable peripherally calcified cyst within the spleen. IMPRESSION: 1. Focal opacity within the right lower lobe medially. This may represent a small developing pneumonia or scarring. 2. Otherwise, no significant change compared to the prior study. 3. No bowel wall thickening or obstruction. 4. Cholecystectomy. Stable mild intrahepatic bile duct dilatation. 5. Suggestion of early cirrhotic change. Electronically signed by: Miky Wilder M.D. 08/27/2017 2:20 PM Dictated Date/Time: 08/27/2017 2:01 PM
== END | disposition home or self-care (01) ==
LOC: C.CTS 13:28
PROVIDERS: ATTEND Family Medicine
DX: R10.11 Right upper quadrant pain (principal); R10.12 Left upper quadrant pain; Z90.49 Acquired absence of other specified parts of digestive tract

== ENCOUNTER → 2017-08-28 | Outpatient (CLI) | payer OTHER ==
[~2017-08-28] MED LIST changes: -OPTIRAY 320 IV PRN
[2017-08-28 13:15] LABS: BLOOD UREA NITROGEN 20 mg/dl (7-18); CREATININE 1.07 mg/dl (0.60-1.20)
== END | disposition home or self-care (01) ==
LOC: C.LABMFLN 09:27
PROVIDERS: ATTEND Family Medicine
DX: E11.65 Type 2 diabetes mellitus with hyperglycemia (principal)